=== PATIENT | male | born 1960 | race Caucasian/White ===

== ENCOUNTER 2019-12-25 09:22 | Outpatient (REF) | payer OTHER, SELFPAY ==
[2019-12-25 10:14] LABS: MANUAL DIFF FLAG NO
[2019-12-25 10:16] LABS: Basophils Percent Auto 0.4 % (0-2); Eosinophils Absolute Auto 0.1 X10*3/uL (0.0-0.4); Eosinophils Percent Auto 1.8 % (0-4); Hematocrit 44.7 % (42-52); Hemoglobin 14.8 g/dl (14.0-18.0); Imm Gran Abs Auto 0.06 X10*3/uL (0.00-0.03); Imm Gran Pct Auto 0.8 % (0.0-0.4); Lymphocytes Percent Auto 13.2 % (20-40); Mean Corpuscular HGB Conc 33.1 g/dl (31.0-36.0); Mean Corpuscular Hemoglobin 28.6 pg (27.0-33.0); Mean Corpuscular Volume 86.3 fL (80-98); Mean Platelet Volume 10.4 fL (9.4-12.4); Monocytes Absolute Auto 0.7 X10*3/uL (0.1-1.2); Monocytes Percent Auto 9.5 % (2-11); Neutrophils Absolute Auto 5.8 X10*3/uL (2.0-8.3); Neutrophils Percent Auto 74.3 % (45-73); Platelet Count 245 X10*3/uL (160-400); Red Blood Count 5.18 X10*6/uL (4.60-5.80); Red Cell Distribution Width 12.1 % (11.0-16.0); White Blood Count 7.8 X10*3/uL (4.8-10.8)
[2019-12-25 10:37] LABS: Glucose Urine UA NEG (NEG); Leukocyte Esterase Urine NEG (NEG); Nitrite Urine NEG (NEG); Specific Gravity - Urine 1.025 (1.005-1.025); Urine Blood NEG (NEG); Urine Ketones 5 MG/DL (NEG); Urine Protein NEG (NEG-TRACE)
[2019-12-25 10:44] LABS: Appearance Urine CLEAR; Color Urine DARK YELLOW
[2019-12-25 10:48] LABS: Alanine Aminotransferase 48 U/L (0-40); Albumin Level 4.7 g/dL (3.5-5.0); Alkaline Phosphatase 76 U/L (39-117); Anion Gap 13 (12-20); Aspartate Amino Transferase 23 U/L (5-37); Bilirubin Total 0.5 mg/dL (0.0-1.0); Blood Urea Nitrogen 21 mg/dL (9-16); Calcium 9.3 mg/dL (8.4-10.2); Carbon Dioxide 27 mmol/L (22-29); Chloride 103 mmol/L (96-108); Cholesterol 237 mg/dL; Estimated Glomerular Filt Rate > 60; Glucose Random 102 mg/dL (60-115); HDL Cholesterol 44 mg/dL; LDL Cholesterol Calculated 154 mg/dl; Potassium 4.5 mmol/l (3.3-5.1); Sodium 138 mmol/L (135-145); Total Protein 7.3 g/dL (6.5-8.0); Triglycerides 197 mg/dL
[2019-12-25 10:58] LABS: Reflex LDLD? No
[2019-12-25 11:12] LABS: Prostate Specific Antigen 0.27 ng/mL (<0.05-4.0)
== END 2019-12-25 09:23 | disposition home or self-care (01) ==
LOC: HO.LAB 09:22
PROVIDERS: PCP Internal Medicine; Visit Provider Internal Medicine
DX: Z00.00 Encounter for general adult medical examination without abnormal findings (principal); E78.00 Pure hypercholesterolemia, unspecified; R80.9 Proteinuria, unspecified; N52.9 Male erectile dysfunction, unspecified; I10 Essential (primary) hypertension; K58.2 Mixed irritable bowel syndrome; Z12.5 Encounter for screening for malignant neoplasm of prostate
CPT/HCPCS: 36415; 80053; 80061; 81003; 84153; 85025

== ENCOUNTER 2021-01-06 10:36 | Outpatient (REF) | payer OTHER, SELFPAY ==
[2021-01-06 10:39] LABS: MANUAL DIFF FLAG NO
[2021-01-06 11:09] LABS: Basophils Percent Auto 0.6 % (0-2); Eosinophils Absolute Auto 0.3 X10*3/uL (0.0-0.4); Eosinophils Percent Auto 3.7 % (0-4); Hematocrit 42.8 % (42-52); Hemoglobin 13.9 g/dl (14.0-18.0); Imm Gran Abs Auto 0.07 X10*3/uL (0.00-0.03); Lymphocytes Absolute Auto 1.3 X10*3/uL (1.2-4.9); Lymphocytes Percent Auto 19.6 % (20-40); Mean Corpuscular HGB Conc 32.5 g/dl (31.0-36.0); Mean Corpuscular Hemoglobin 28.5 pg (27.0-33.0); Mean Corpuscular Volume 87.7 fL (80-98); Monocytes Absolute Auto 0.9 X10*3/uL (0.1-1.2); Neutrophils Absolute Auto 4.1 X10*3/uL (2.0-8.3); Neutrophils Percent Auto 62.1 % (45-73); Platelet Count 245 X10*3/uL (160-400); Red Blood Count 4.88 X10*6/uL (4.60-5.80); Red Cell Distribution Width 12.4 % (11.0-16.0); White Blood Count 6.7 X10*3/uL (4.8-10.8)
[2021-01-06 11:27] LABS: Appearance Urine CLEAR; Color Urine YELLOW; Glucose Urine UA NEG (NEG); Leukocyte Esterase Urine NEG (NEG); Nitrite Urine NEG (NEG); Specific Gravity - Urine 1.025 (1.005-1.025); Urine Blood NEG (NEG); Urine Ketones NEG (NEG); Urine Protein NEG (NEG-TRACE)
[2021-01-06 11:41] LABS: Alanine Aminotransferase 28 U/L (0-40); Albumin Level 4.3 g/dL (3.5-5.0); Alkaline Phosphatase 74 U/L (39-117); Anion Gap 13 (12-20); Aspartate Amino Transferase 20 U/L (5-37); Bilirubin Total 0.4 mg/dL (0.0-1.0); Blood Urea Nitrogen 15 mg/dL (9-16); Calcium 8.9 mg/dL (8.4-10.2); Carbon Dioxide 27 mmol/L (22-29); Chloride 103 mmol/L (96-108); Cholesterol 231 mg/dL; Estimated Glomerular Filt Rate > 60; Glucose Fasting 107 mg/dL (60-99); HDL Cholesterol 36 mg/dL; LDL Cholesterol Calculated 164 mg/dl; Sodium 139 mmol/L (135-145); Total Protein 6.9 g/dL (6.5-8.0); Triglycerides 158 mg/dL
[2021-01-06 11:44] LABS: PSA,Total (Free>4and<10) 0.22 ng/mL (0.00-4.00)
[2021-01-06 12:32] LABS: Reflex LDLD? No
== END 2021-01-06 10:37 | disposition home or self-care (01) ==
LOC: HO.LNP 10:36
PROVIDERS: Visit Provider Internal Medicine
DX: Z00.00 Encounter for general adult medical examination without abnormal findings (principal); R79.9 Abnormal finding of blood chemistry, unspecified; E78.00 Pure hypercholesterolemia, unspecified; I10 Essential (primary) hypertension
CPT/HCPCS: 80053; 80061; 81003; 84153; 85025

== ENCOUNTER 2021-07-08 10:21 | Outpatient (REF) | payer OTHER, SELFPAY ==
[2021-07-08 11:00] LABS: Alanine Aminotransferase 32 U/L (0-40); Albumin Level 4.3 g/dL (3.5-5.0); Alkaline Phosphatase 77 U/L (39-117); Aspartate Amino Transferase 20 U/L (5-37); Bilirubin Direct 0.2 mg/dL (0.0-0.5); Bilirubin Total 0.8 mg/dL (0.0-1.0); Cholesterol 245 mg/dL; HDL Cholesterol 38 mg/dL; LDL Cholesterol Calculated 176 mg/dl; Total Protein 7.1 g/dL (6.5-8.0); Triglycerides 157 mg/dL
[2021-07-08 12:32] LABS: Reflex LDLD? No
== END 2021-07-08 10:22 | disposition home or self-care (01) ==
LOC: HO.LNP 10:21
PROVIDERS: PCP Internal Medicine; Visit Provider Internal Medicine
DX: E78.00 Pure hypercholesterolemia, unspecified (principal)
CPT/HCPCS: 80061; 80076

== ENCOUNTER 2021-09-23 07:33 | Outpatient (REF) | payer OTHER, SELFPAY ==
--- NOTE | ~2021-09-23 | XR_ITS ---
EXAMINATION: KNEE X-RAY CLINICAL INFORMATION: Pain COMPARISON: None TECHNIQUE: AP standing view of both knees and lateral and sunrise view of the right knee FINDINGS: Right: Bone alignment is normal. No fracture or dislocation is seen. There is mild joint space narrowing at the medial femoral tibial joint. Joint spaces are otherwise. There is no joint effusion. AP view of the left knee is unremarkable. XR/XR knee standing BI IMPRESSION: Mild joint space narrowing at the right medial femoral tibial joint.
--- NOTE | ~2021-09-23 | XR_ITS ---
EXAMINATION: KNEE X-RAY CLINICAL INFORMATION: Pain COMPARISON: None TECHNIQUE: AP standing view of both knees and lateral and sunrise view of the right knee FINDINGS: Right: Bone alignment is normal. No fracture or dislocation is seen. There is mild joint space narrowing at the medial femoral tibial joint. Joint spaces are otherwise. There is no joint effusion. AP view of the left knee is unremarkable. XR/XR knee RT 2V IMPRESSION: Mild joint space narrowing at the right medial femoral tibial joint.
== END 2021-09-23 07:34 | disposition home or self-care (01) ==
LOC: HO.HOSX 07:33
PROVIDERS: Visit Provider Physician Assistant
DX: M17.11 Unilateral primary osteoarthritis, right knee (principal); M25.562 Pain in left knee
CPT/HCPCS: 20610; 73560; 73565; J1040

== ENCOUNTER 2022-01-08 10:54 | Outpatient (REF) | payer OTHER, SELFPAY ==
[2022-01-08 10:58] LABS: MANUAL DIFF FLAG NO
[2022-01-08 11:54] LABS: Basophils Percent Auto 0.5 % (0-2); Eosinophils Absolute Auto 0.2 X10*3/uL (0.0-0.4); Eosinophils Percent Auto 2.5 % (0-4); Hematocrit 43.8 % (42.0-52.0); Hemoglobin 14.4 g/dl (14.0-18.0); Imm Gran Abs Auto 0.06 X10*3/uL (0.00-0.03); Imm Gran Pct Auto 0.8 % (0.0-0.4); Lymphocytes Absolute Auto 1.4 X10*3/uL (1.2-4.9); Lymphocytes Percent Auto 19.3 % (20-40); Mean Corpuscular HGB Conc 32.9 g/dl (31.0-36.0); Mean Corpuscular Hemoglobin 28.5 pg (27.0-33.0); Mean Corpuscular Volume 86.6 fL (80.0-98.0); Mean Platelet Volume 10.2 fL (9.4-12.4); Monocytes Absolute Auto 0.7 X10*3/uL (0.1-1.2); Monocytes Percent Auto 9.7 % (2-11); Neutrophils Percent Auto 67.2 % (45-73); Platelet Count 242 X10*3/uL (160-400); Red Blood Count 5.06 X10*6/uL (4.60-5.80); White Blood Count 7.5 X10*3/uL (4.8-10.8)
[2022-01-08 12:04] LABS: Alanine Aminotransferase 33 U/L (0-40); Albumin Level 4.5 g/dL (3.5-5.0); Alkaline Phosphatase 73 U/L (39-117); Anion Gap 15 (12-20); Aspartate Amino Transferase 19 U/L (5-37); Bilirubin Total 0.6 mg/dL (0.0-1.0); Blood Urea Nitrogen 19 mg/dL (9-16); Calcium 9.2 mg/dL (8.4-10.2); Carbon Dioxide 26 mmol/L (22-29); Chloride 102 mmol/L (96-108); Cholesterol 263 mg/dL; Estimated Glomerular Filt Rate > 60; Glucose Fasting 100 mg/dL (60-99); HDL Cholesterol 37 mg/dL; LDL Cholesterol Calculated 188 mg/dl; Potassium 3.9 mmol/L (3.3-5.1); Sodium 139 mmol/L (135-145); Total Protein 7.2 g/dL (6.5-8.0); Triglycerides 191 mg/dL
[2022-01-08 12:26] LABS: PSA,Total (Free>4and<10) 0.17 ng/mL (0.00-4.00)
[2022-01-08 13:27] LABS: Appearance Urine Clear; Color Urine Dark Yellow; Glucose Urine UA Negative (Negative); Leukocyte Esterase Urine Negative (Negative); Nitrite Urine Negative (Negative); PH 5.5 (5.0-9.0); Urine Blood Negative (Negative); Urine Ketones Trace mg/dL (Negative); Urine Protein Trace mg/dL (Neg-Trace)
[2022-01-08 13:42] LABS: Bacteria Urine None Seen (None Seen); RBC Urine 0-2 /HPF (0-2); WBC Urine 0-5 /HPF (0-5)
== END 2022-01-08 10:55 | disposition home or self-care (01) ==
LOC: HO.LNP 10:54
PROVIDERS: Visit Provider Internal Medicine
DX: Z00.00 Encounter for general adult medical examination without abnormal findings (principal); R80.9 Proteinuria, unspecified; E78.00 Pure hypercholesterolemia, unspecified; I10 Essential (primary) hypertension; Z12.5 Encounter for screening for malignant neoplasm of prostate
CPT/HCPCS: 80053; 80061; 81001; 84153; 85025

== ENCOUNTER 2022-04-14 10:38 | Outpatient (REF) | payer OTHER, SELFPAY ==
[2022-04-14 12:49] LABS: Alanine Aminotransferase 25 U/L (0-40); Albumin Level 4.3 g/dL (3.5-5.0); Alkaline Phosphatase 83 U/L (39-117); Aspartate Amino Transferase 18 U/L (5-37); Bilirubin Total 0.5 mg/dL (0.0-1.0); Cholesterol 241 mg/dL; HDL Cholesterol 39 mg/dL; LDL Cholesterol Calculated 174 mg/dl; Total Protein 6.7 g/dL (6.5-8.0); Triglycerides 140 mg/dL
[2022-04-14 13:14] LABS: Bilirubin Direct 0.2 mg/dL (0.0-0.5)
== END 2022-04-14 10:39 | disposition home or self-care (01) ==
LOC: HO.LNP 10:38
PROVIDERS: Visit Provider Internal Medicine
DX: E78.00 Pure hypercholesterolemia, unspecified (principal)
CPT/HCPCS: 80061; 80076

== ENCOUNTER 2022-07-07 12:07 | Outpatient (REF) | payer OTHER, SELFPAY ==
[2022-07-07 13:30] LABS: Alanine Aminotransferase 33 U/L (0-40); Albumin Level 4.2 g/dL (3.5-5.0); Alkaline Phosphatase 84 U/L (39-117); Aspartate Amino Transferase 18 U/L (5-37); Bilirubin Direct 0.2 mg/dL (0.0-0.5); Bilirubin Total 0.5 mg/dL (0.0-1.0); Cholesterol 137 mg/dL; HDL Cholesterol 36 mg/dL; LDL Cholesterol Calculated 83 mg/dl; Total Protein 6.4 g/dL (6.5-8.0); Triglycerides 90 mg/dL
== END 2022-07-07 12:08 | disposition home or self-care (01) ==
LOC: HO.LNP 12:07
PROVIDERS: Visit Provider Internal Medicine
DX: Z13.89 Encounter for screening for other disorder (principal)
CPT/HCPCS: 80061; 80076

== ENCOUNTER → 2022-08-11 13:47 | Outpatient (BNVA) | payer OTHER, SELFPAY | PROVIDERS: PCP Internal Medicine; Referring Provider Internal Medicine; Visit Provider Surgery ==

== ENCOUNTER 2023-01-07 11:19 | Outpatient (REF) | payer OTHER, SELFPAY ==
[2023-01-07 11:23] LABS: MANUAL DIFF FLAG NO
[2023-01-07 12:16] LABS: Basophils Percent Auto 0.6 % (0-2); Eosinophils Absolute Auto 0.1 X10*3/uL (0.0-0.4); Hematocrit 43.9 % (42.0-52.0); Hemoglobin 14.5 g/dl (14.0-18.0); Imm Gran Abs Auto 0.06 X10*3/uL (0.00-0.03); Imm Gran Pct Auto 0.9 % (0.0-0.4); Lymphocytes Absolute Auto 1.1 X10*3/uL (1.2-4.9); Lymphocytes Percent Auto 16.9 % (20-40); Mean Corpuscular Hemoglobin 29.8 pg (27.0-33.0); Mean Corpuscular Volume 90.3 fL (80.0-98.0); Mean Platelet Volume 10.7 fL (9.4-12.4); Monocytes Absolute Auto 0.7 X10*3/uL (0.1-1.2); Monocytes Percent Auto 10.7 % (2-11); Neutrophils Absolute Auto 4.5 x10*3/uL (2.0-8.3); Neutrophils Percent Auto 68.9 % (45-73); Platelet Count 222 X10*3/uL (160-400); Red Blood Count 4.86 X10*6/uL (4.60-5.80); Red Cell Distribution Width 12.4 % (11.0-16.0); White Blood Count 6.6 X10*3/uL (4.8-10.8)
[2023-01-07 12:27] LABS: Appearance Urine Clear; Color Urine Yellow; Glucose Urine UA Negative (Negative); Leukocyte Esterase Urine Negative (Negative); Nitrite Urine Negative (Negative); Urine Blood Negative (Negative); Urine Ketones Negative (Negative); Urine Protein Negative (Neg-Trace)
[2023-01-07 12:30] LABS: Bacteria Urine None Seen (None Seen); Hyaline Casts Urine 0-2 /LPF (0-2); RBC Urine 0-2 /HPF (0-2); Squamous Epithelial Cell Urine 0-2 /HPF (0-2); WBC Urine 0-5 /HPF (0-5)
[2023-01-07 13:22] LABS: PSA,Total (Free>4and<10) 0.15 ng/mL (0.00-4.00)
[2023-01-07 13:45] LABS: Alanine Aminotransferase 44 U/L (0-40); Albumin Level 4.4 g/dL (3.5-5.0); Alkaline Phosphatase 86 U/L (39-117); Anion Gap 14 (12-20); Aspartate Amino Transferase 25 U/L (5-37); Bilirubin Total 0.4 mg/dL (0.0-1.0); Blood Urea Nitrogen 18 mg/dL (9-16); Calcium 9.4 mg/dL (8.4-10.2); Carbon Dioxide 27 mmol/L (22-29); Chloride 102 mmol/L (96-108); Cholesterol 139 mg/dL (<200); Estimated Glomerular Filt Rate > 60; Glucose Fasting 111 mg/dL (60-99); HDL Cholesterol 41 mg/dL (>40); LDL Cholesterol Calculated 77 mg/dL (<100); Potassium 3.9 mmol/L (3.3-5.1); Sodium 139 mmol/L (135-145); Total Protein 7.5 g/dL (6.5-8.0); Triglycerides 106 mg/dL (<150)
== END 2023-01-07 11:20 | disposition home or self-care (01) ==
LOC: HO.LNP 11:19
PROVIDERS: Visit Provider Internal Medicine
DX: Z00.00 Encounter for general adult medical examination without abnormal findings (principal); Z12.5 Encounter for screening for malignant neoplasm of prostate; E78.00 Pure hypercholesterolemia, unspecified; I10 Essential (primary) hypertension
CPT/HCPCS: 80053; 80061; 81001; 84153; 85025

== ENCOUNTER 2023-07-12 11:21 | Outpatient (REF) | payer MEDICARE, SELFPAY ==
[2023-07-12 11:42] LABS: Alanine Aminotransferase 36 U/L (0-40); Albumin Level 4.4 g/dL (3.5-5.0); Alkaline Phosphatase 83 U/L (39-117); Aspartate Amino Transferase 21 U/L (5-37); Bilirubin Direct 0.2 mg/dL (0.0-0.5); Bilirubin Total 0.5 mg/dL (0.0-1.0); Cholesterol 146 mg/dL (<200); HDL Cholesterol 41 mg/dL (>40); LDL Cholesterol Calculated 75 mg/dL (<100); Total Protein 7.2 g/dL (6.5-8.0); Triglycerides 151 mg/dL (<150)
[2023-07-12 11:51] LABS: Reflex LDLD? No
== END 2023-07-12 11:22 | disposition home or self-care (01) ==
LOC: HO.LNP 11:21
PROVIDERS: Visit Provider Internal Medicine
DX: E78.00 Pure hypercholesterolemia, unspecified (principal)
CPT/HCPCS: 80061; 80076

== ENCOUNTER 2024-01-13 11:52 | Outpatient (REF) | payer MEDICARE, SELFPAY ==
[2024-01-13 11:56] LABS: MANUAL DIFF FLAG NO
[2024-01-13 12:02] LABS: Appearance Urine Clear; Color Urine Yellow; Glucose Urine UA Negative (Negative); Leukocyte Esterase Urine Negative (Negative); Nitrite Urine Negative (Negative); Specific Gravity - Urine 1.025 (1.005-1.025); Urine Blood Negative (Negative); Urine Ketones Trace mg/dL (Negative); Urine Protein Trace mg/dL (Neg-Trace)
[2024-01-13 12:04] LABS: Basophils Percent Auto 0.6 % (0-2); Eosinophils Absolute Auto 0.2 X10*3/uL (0.0-0.4); Hematocrit 40.2 % (42.0-52.0); Hemoglobin 13.2 g/dl (14.0-18.0); Imm Gran Abs Auto 0.06 X10*3/uL (0.00-0.03); Imm Gran Pct Auto 0.9 % (0.0-0.4); Lymphocytes Absolute Auto 1.2 X10*3/uL (1.2-4.9); Lymphocytes Percent Auto 18.6 % (20-40); Mean Corpuscular HGB Conc 32.8 g/dl (31.0-36.0); Mean Corpuscular Hemoglobin 28.9 pg (27.0-33.0); Mean Platelet Volume 10.6 fL (9.4-12.4); Monocytes Absolute Auto 0.6 X10*3/uL (0.1-1.2); Monocytes Percent Auto 9.6 % (2-11); Neutrophils Absolute Auto 4.3 x10*3/uL (2.0-8.3); Neutrophils Percent Auto 67.3 % (45-73); Platelet Count 217 X10*3/uL (160-400); Red Blood Count 4.57 X10*6/uL (4.60-5.80); Red Cell Distribution Width 12.5 % (11.0-16.0); White Blood Count 6.4 X10*3/uL (4.8-10.8)
[2024-01-13 12:06] LABS: Bacteria Urine None Seen (None Seen); Hyaline Casts Urine 0-2 /LPF (0-2); RBC Urine 0-2 /HPF (0-2); Squamous Epithelial Cell Urine 0-2 /HPF (0-2); WBC Urine 0-5 /HPF (0-5)
[2024-01-13 12:14] LABS: Alanine Aminotransferase 46 U/L (0-40); Albumin Level 4.2 g/dL (3.5-5.0); Alkaline Phosphatase 80 U/L (39-117); Anion Gap 11 (12-20); Aspartate Amino Transferase 31 U/L (5-37); Bilirubin Total 0.4 mg/dL (0.0-1.0); Blood Urea Nitrogen 20 mg/dL (9-16); Calcium 8.9 mg/dL (8.4-10.2); Carbon Dioxide 29 mmol/L (22-29); Chloride 104 mmol/L (96-108); Cholesterol 146 mg/dL (<200); Estimated Glomerular Filt Rate > 60; Glucose Fasting 102 mg/dL (60-99); HDL Cholesterol 44 mg/dL (>40); LDL Cholesterol Calculated 76 mg/dL (<100); Potassium 3.8 mmol/L (3.3-5.1); Sodium 140 mmol/L (135-145); Total Protein 6.8 g/dL (6.5-8.0); Triglycerides 133 mg/dL (<150)
[2024-01-13 12:34] LABS: PSA,Total (Free>4and<10) 0.38 ng/mL (0.00-4.00)
== END 2024-01-13 11:53 | disposition home or self-care (01) ==
LOC: HO.LNP 11:52
PROVIDERS: Visit Provider Internal Medicine
DX: Z00.00 Encounter for general adult medical examination without abnormal findings (principal); E78.00 Pure hypercholesterolemia, unspecified; I10 Essential (primary) hypertension; Z12.5 Encounter for screening for malignant neoplasm of prostate
CPT/HCPCS: 80053; 80061; 81001; 84153; 85025

== ENCOUNTER 2024-07-11 10:52 | Outpatient (REF) | payer MEDICARE, SELFPAY ==
[2024-07-11 11:45] LABS: Alanine Aminotransferase 49 U/L (0-40); Albumin Level 4.4 g/dL (3.5-5.0); Alkaline Phosphatase 79 U/L (39-117); Aspartate Amino Transferase 33 U/L (5-37); Bilirubin Direct 0.2 mg/dL (0.0-0.5); Bilirubin Total 0.4 mg/dL (0.0-1.0); Cholesterol 136 mg/dL (<200); HDL Cholesterol 40 mg/dL (>40); LDL Cholesterol Calculated 73 mg/dL (<100); Triglycerides 116 mg/dL (<150)
--- OUTSIDE RECORDS SUMMARY | 2024-07-11 12:55 | XMS_ITS ---
Author Organization Abner Mcgovern MD Address [address] [place], [place] [id number] Care Team Providers Care Supervisor [employer] Name Role Phone Shaniqua Abner Primary Care Provider Results Component Value Reference Range Notes Liver Panel (Not yet reviewe d by provider) Interpretation: Performing Lab:[facility], [address] [place] [phone] Notes/Report: Bilirubin Total 0.4 0.0-1.0 mg/dL Bilirubin Direct 0.2 0.0-0.5 mg/dL Aspartate Amino Transferase 33 5-37 U/L Alanine Aminotransferase 49 0-40 U/L Total Protein 7.0 6.5-8.0 g/dL Albumin Level 4.4 3.5-5.0 g/dL Alkaline Phosphatase 79 39-117 U/L Lipid Panel (Not yet reviewe d by provider) Interpretation: Performing Lab:[address] [phone] Notes/Report: Triglycerides 116 <150 mg/dL Desirable Triglyceride: [...] Location Date Provider Diagnosis Abner Mcgovern MD [address] [place] [phone] 07/11/2024 Abner Mcgovern Pure hypercholestero lemia E78.00 and Anxiety F41.9 Assessments Encounter Date Diagnosis (ICD Code) Assessment Notes Treatment Notes Treatment Clinical Notes Section Notes 07/11/2024 Pure hypercholesterolemia (ICD-10 - E78.00) 07/11/2024 Anxiety (ICD-10 - F41.9) Plan Of Treatment Pending Test Test Name Order Date Liver Panel 07/11/2024 Lipid Panel 07/11/2024 Next Appt Details Provider Name:Abner seymour, 07/17/2024 01:30:00 PM, [address] [place] [address], [address], [phone], Provider Name:Abner seymour, 01/16/2025 07:30:00 AM, [address] [place] [address], [address], [phone], Provider Name:Abner seymour, 01/23/2025 01:00:00 PM, [address] [place] [address], [phone], Progress Notes * Gloria PARKS: 8 (64 yo M)Acc No.[id number]:07/11/2024 Progress Note Patient:?Wily PARKS Provider:?Abner Mcgovern MD :1960???Age:64 Y???Sex:Male Mayco e:07/11/2024 Address:[address] [place] [address], Lexi flores [id number] Subjective: * Chief Complaints: * ???1. FASTING LIPIDS. * Medical History:? Objective: * Vitals:? Assessment: * Assessment: 1.?Pure hypercholesterolemia - E78.00 (Primary)???2.?Anxiety - F41.9??? Plan: * Treatment: 2.?Anxiety?LAB: Liver Panel (Collection Date & Time - 07/11/2024 08:00 AM) ?LAB: Lipid Panel (Collection Date & Time - 07/11/2024 08:00 AM) * Procedure Codes:?61953 VENIP UNCT, ROUTINE* * * The named appointment provid er may or may not be the originator of this progress note, and it is not deemed complete until electronically signed by the appointment provider. Sign off status: Pending * Provider:?Abner Mcgovern MD Date:?0 07/11/2024 Generated for Joseph davis/Kaleb/Hubertitting on:?07/11/2024 12:55 PM EDT
--- OUTSIDE RECORDS SUMMARY | 2024-07-11 12:56 | XMS_ITS ---
Author Organization Abner Mcgovern MD Address [address] [place] [phone] Care Team Providers Care Marketing Finance Specialist Name Role Phone Abner Mcgovern Primary Care Provider [phone] Allergies No Known Allergies Results Component Value [...] weight is down 4 pounds [facility] 07-19-23 Encounters Encounter Location Date Provider Diagnosis Abner Mcgovern MD [address] [place] [address] Drive [address] [place] [phone] 01/20/2024 Abner Mcgovern Anxiety F41.9 ; Suma [...] screening guaiac negative Depression screening negative screen Pending Test Test Name Order Date Liver Panel 01/20/2024 Lipid Panel 01/20/2024 Next Appt Details Follow Up: 6 Months, Reason: Provider Name:Abner seymour, 07/17/2024 01:30:00 PM, [address] [place] [address], [address], [phone], Provider Name:Abner seymour, 01/16/2025 07:30:00 AM, [address] [place] [address], [address], [phone], Provider Name:Abner seymour, 01/23/2025 01:00:00 PM, [address] [place] [address], [address], [phone], Progress Notes * Gloria PARKS: 8 (64 yo M)Acc No.[id number]:01/20/2024 Patient:?Wily Parks Provider:?Abner Mcgovern MD :1960???Age:63 Y???Sex:Male Mayco e:01/20/2024 Address:[address] [place] [address], [place]i flores [id number] Subjective: * Chief Complaints: * ???COMP EXAM * HPI: ???Depression Screening:?PHQ-9?Little interest or pleasure in doing things?Not at all,?Feeling down, depressed, or hopeless?Not at all,?Trouble falling or staying asleep, or sleeping too much?Not at all,?Feeling tired or having little energy?Not at all,?Poor appetite or overeating?Not at all,?Feeling bad about yourself or that you are a failure, or have let yourself or your family down?Not at all,?Trouble concentrating on things, such as reading the newspaper or watching television?Not at all,?Moving or speaking so slowly that other people could have noticed; or the opposite, being so fidgety or restless that you have been moving around a lot more than usual?Not at all,?Thoughts that you would be better off or of hurting yourself in some way?Not at all,?Total Score?0.?Interpretation and Intervention?Depression Screening Findings?Negative,?Follow-Up for Depression?: review of PHQ-9 found negative result, no follow-up needed.?Communication Needs:?Communication Needs?Does the patient have a hearing impairment?No,?Does the patient have a vision impairment??Yes,?If yes, what is the vision impairment??Contact Lenses,?Does the patient have a cognition impairment??No.?Fall Risk:?History?Have you had any falls with injury in the past year??No,?Have you had two or more falls in the past year??No.?SDOH Questions:?SDOH Questions?In the past year have you been worried about losing housing??No,?In the past year have you or any family members you live with been unable to get any of the following when it was really needed? Check all that apply:?None.?Symptom(s):? patient is a 63 yo male here for annual visit with review of recent labs and follow up of chronic issues,. * ROS:?General/Constitutional:?Patient denies?fatigue , headache.?Change in appetite?denies.?Chills?denies.?Fever?denies.?Ophthalmologic:?Blurred vision?denies.?Discharge?denies.?Pain?denies.?ENT:?Patient denies?decreased sense of smell , any loss of taste , sore throat.?Decreased hearing?denies.?Sore throat?denies.?Swollen glands?denies.?Endocrine:?Cold intolerance?denies.?Excessive thirst?denies.?Heat intolerance?denies.?Weight loss?denies.?Respiratory:?Cough?denies.?Shortness of breath at rest?denies.?Shortness of breath with exertion?denies.?Wheezing?denies.?Cardiovascular:?Chest pain at rest?denies.?Chest pain with exertion?denies.?Irregular heartbeat?denies.?Shortness of breath?denies.?Gastrointestinal:?Abdominal pain?denies.?Change in bowel habits?denies.?Diarrhea?denies.?Nausea?denies.?Rectal bleeding?denies.?Vomiting?denies .?Genitourinary:?Blood in urine?denies.?Difficulty urinating?denies.?Frequent urination?denies.?Musculoskeletal:?Patient denies?muscle aches.?Painful joints?denies.?Weakness?denies.?Peripheral Vascular:?Patient denies?red and blue toes.?Skin:?Dry skin?denies.?Itching?denies.?Denies?Mole(s),? changes in moles, new moles or any lesions of concern.?Denies?Photosensitivity.?Rash?denies.?Neurologic:?Dizziness?denies.?Fainting?denies.?Headache?denies.? * Medical History:? * Surgical History:? * Hospitalization/Major Diagno stic Procedure:? * Family History:?Father: dece ased 58 yrs, colon cancer, pancreatic cancer, diagnosed with Cancer.?Mother: 85 yrs, Old age., family history unknown .?1 brother(s) , 2 sister(s) - healthy. 1 son(s) - healthy. .? father, colon & pancreatic CA, No pertinent family medical history, Denies mental health/substance abuse family history, Denies mental health/substance abuse family history, Denies mental health/substance abuse family history, No pertinent family medical history. * Social History:?Tobacco Use:?Tobacco Use/Smoking?Patient is a?nonsmoker,?Additional Findings: Tobacco Non-User?Current non-smoker, currently using no form of tobacco.?Drugs/Alcohol:?Alcohol Screen?Did you have a drink containing alcohol in the past year??Yes,?How often did you have a drink containing alcohol in the past year??2 to 4 times a month (2 points),?How many drinks did you have on a typical day when you were drinking in the past year??1 or 2 drinks (0 point),?Points?2,?Interpretation?Negative.?Miscellaneous:?Caffeine: yes, frequency:, 1-2 cups per day. Children: yes. no Community involvements. Exercise: yes, weights rowing machine and tennis in the summer pickle ball. Home smoke detector use: yes. Housing: owning. Living with: family. Marital status: . Occupation: works full-time. Pets: cats: dogs:1 cat. no Travel outside of the [place]. * Medications:?TakingclonazePA M 0.5 MG Tablet 1 tablet at bedtime [...] reviewed and reconciled with the patient * Allergies:?N.K.D.A.yes[Aller gies Verified] Objective: * Vitals:?Ht: 68, Wt:169, BMI: 25.69, BP:122/70 weight is down 4 pounds since 07-19-23. * ???Past Orders: ???Lab:Lipid Panel (Order Da te - 01/13/2024) (Collection Date - 01/13/2024) ? Value Reference Range ?Triglycerides 133 <150 - mg/dL ?Cholesterol 146 <200 - m g/dL ?LDL Cholesterol Calculated 76 <100 - mg/dL ?HDL Cholesterol 44 >40 - mg/dL ???Lab:PSA,Total (Free>4and< 10) (Order Date - 01/13/2024) (Collection Date - 01/13/2024) ? Value Reference Range ?PSA,Total (Free>4and<10) 0.38 0.00-4.00 - ng/mL ???Lab:UA ClnCatch+Micro w/r flx Cult (Order Date - 01/13/2024) (Collection Date - 01/13/2024) ? Value Reference Range ?Color Urine Yellow - ?Appearance Urine Clear - ?PH 7.0 5.0-9.0 - ?Glucose Urine UA Negative Neg ative - mg/dL ?Urine Blood Negative Negative - ?Specific [place] - Urine 1.025 1.005-1.025 - ?Urine Protein Trace Neg-Tr preethi - mg/dL ?Urine Ketones Trace Negati ve - mg/dL ?Nitrite Urine Negative Negati ve - ?Leukocyte Esterase Urine Negative Negative - ?RBC Urine 0-2 0-2 - /HPF ?WBC Urine 0-5 0-5 - /HPF ?Squamous Epithelial Cell Urine 0-2 0-2 - /HPF ?Bacteria Urine None Seen None Seen - ?Hyaline Casts Urine 0-2 0-2 - /LPF ???Lab:Complete Blood Count Auto Diff (Order Date - 01/13/2024) (Collection Date - 01/13/2024) ? Value Reference Range ?White Blood Count 6.4 4. 8-10.8 - X10*3/uL ?Red Blood Count 4.57 L 4.60 -5.80 - X10*6/uL ?Hemoglobin 13.2 L 14.0-18.0 - g/dl ?Hematocrit 40.2 L 42.0-52.0 - % ?Mean Corpuscular Volume 88.0 80.0-98.0 - fL ?Mean Corpuscular Hemoglobin 28.9 27.0-33.0 - pg ?Mean Corpuscular HGB Conc 32.8 31.0-36.0 - g/dl ?Red Cell Distribution Width 12.5 11.0-16.0 - % ?Platelet Count 217 160-4 00 - X10*3/uL ?Mean Platelet Volume 10.6 9.4-12.4 - fL ?Neutrophils Percent Auto 67.3 45-73 - % ?Imm Gran Pct Auto 0.9 H 0. 0-0.4 - % ?Lymphocytes Percent Auto 18.6 L 20-40 - % ?Monocytes Percent Auto 9.6 2-11 - % ?Eosinophils Percent Auto 3.0 0-4 - % ?Basophils Percent Auto 0.6 0-2 - % ?NRBC Pct Auto 0.0 0.0-0. 2 - /100WBC ?Neutrophils Absolute Auto 4.3 2.0-8.3 - x10*3/uL ?Imm Gran Abs Auto 0.06 H 0. 00-0.03 - X10*3/uL ?Lymphocytes Absolute Auto 1.2 1.2-4.9 - X10*3/uL ?Monocytes Absolute Auto 0.6 0.1-1.2 - X10*3/uL ?Eosinophils Absolute Auto 0.2 0.0-0.4 - X10*3/uL ?Basophils Absolute Auto 0.0 0.0-0.2 - X10*3/uL ?NRBC Abs Auto 0.000 0.0-0. 012 - X10*3/uL ???Lab:Comprehensive [place]. P sindhu Fast (Order Date - 01/13/2024) (Collection Date - 01/13/2024) ? Value Reference Range ?Sodium 140 135-145 - mmo l/L ?Bilirubin Total 0.4 0.0- 1.0 - mg/dL ?Aspartate Amino Transferase 31 5-37 - U/L ?Alanine Aminotransferase 46 H 0-40 - U/L ?Total Protein 6.8 6.5-8. 0 - g/dL ?Albumin Level 4.2 3.5-5. 0 - g/dL ?Alkaline Phosphatase 80 39-117 - U/L ?Potassium 3.8 3.3-5.1 - mmol/L ?Chloride 104 96-108 - mm ol/L ?Carbon Dioxide 29 22-29 - mmol/L ?Anion Gap 11 L 12-20 - ?Blood Urea Nitrogen 20 H 9-16 - mg/dL ?Creatinine 0.97 0.5-1.4 - mg/dL ?Estimated Glomerular Filt Rate > 60 - ?Glucose Fasting 102 H 60-9 9 - mg/dL ?Calcium 8.9 8.4-10.2 - m g/dL * Examination: ???General Examination: ?GENERAL APPEARANCE:?well developed, well nourished, in no acute distress.?HEAD:?normocephalic, atraumatic.?EYES:?pupils equal, round, reactive to light and accommodation, sclera non-icteric.?EARS:?normal.?ORAL CAVITY:?mucosa moist.?THROAT:?clear.?NECK/THYROID:?neck supple, full range of motion, no cervical lymphadenopathy, no bruits.?SKIN:?warm and dry, no suspicious lesions.?HEART:?regular rate and rhythm, S1, S2 normal, no murmurs.?LUNGS:?clear to auscultation bilaterally.?ABDOMEN:?soft, nontender, nondistended, bowel sounds present, normal, no organomegaly , no masses palpable.?RECTAL EXAM:?normal tone, no external hemorrhoids, no masses palpable, prostate normal, stool guaiac negative.?MALE GENITOURINARY:?uncircumcised , no penile lesions or discharge , no testicular mass , prostate normal , testes descended bilaterally.?EXTREMITIES:?no clubbing, cyanosis, or edema.?NEUROLOGIC:?nonfocal, motor strength normal upper and lower extremities, sensory exam intact.? Assessment: * Assessment: 1.?Annual physical exam - Z0 0.00 (Primary)?2.?Anxiety - F41.9?3.?Pure hypercholesterolemia - E78.00?4.?Essential hypertension - I10?5.?Colon cancer screening - Z12.11?6.?Depression screening - Z13.31? Plan: * Treatment: 2.?Anxiety? Refill clonazePAM Tablet, 0.5 MG, 1 tablet at bedtime, Orally, Once a day as needed, 20 days, 20, Refills 1.?LAB: Liver Panel (Ordered for 04/21/2024) ?LAB: Lipid Panel (Ordered for 04/21/2024) Notes: doing well with occasionally need to take clonopin, will continue to monitor?? 3.?Pure hypercholesterolemia ? Continue Atorvastatin Calcium Tablet, 40 MG, 0.5 tablet, Orally, Once a day.?? Notes: doing well on meds.will continue current regiment?? 4.?Essential hypertension? Continue Valsartan-hydroCHLOROthiazide Tablet, 80-12.5 MG, TAKE 1 TABLET BY MOUTH EVERY DAY.?? Notes: stable, at goal, will continue current regiment?? 5.?Colon cancer screening?LAB: Occult Blood, Stool, Guaiac?Negative ? Value Reference Range ?Occult Blood, Stool, Guaiac Neg Notes: guaiac negative??6.?Depression screening? Notes: negative screen?? * Procedure Codes:?87435 TEST FOR BLOOD, FECES * Follow Up:?6 Months * * Sign off status: Completed true * Provider:?Abner Mcgovern MD Date:?1 Generated for Joseph davis/Kaleb/eTransmitting on:?07/11/2024 12:56 PM EDT History and Physical Notes * [...] patient have a vision impairmen t?: Yes ?If yes, what is the vision impairment?: Contact Lenses Does the patient have a cognition impair ment?: No Examination Category Sub-Category Detail Notes Category Not es General Examination GENERAL APPEARANCE: well dev eloped, well nourished, in no acute distress HEAD: normocephalic, atrau matic EYES: pupils equal, round, reactive to light and accommodation, sclera non- icteric EARS: normal THROAT: clear NECK/THYROID: neck supple, [...]
--- OUTSIDE RECORDS SUMMARY | 2024-07-11 12:56 | XMS_ITS ---
Author Organization Abner Mcgovern MD Address [address] [place] [phone] Care Team Providers Care Experimental Mechanic [employer] Name Role Phone Abner Mcgovern Primary Care Provider Results Component Value Reference Range Notes Complete Blood Count Auto Di ff Reviewed date:01/13/2024 12:47:23 PM Interpretation: Performing Lab:[facility], [address] [place] [phone] Notes/Report: White Blood Count 6.4 4.8-10.8 X10*3/uL [...] NRBC Abs Auto 0.000 0.0-0.012 X10*3/uL Comprehensive [place]. Panel Fa st Reviewed date:01/13/2024 12:27:45 PM Interpretation: Performing Lab:[facility], [address] [place] [phone] Notes/Report: Sodium 140 135-145 mmol/L Potassium 3.8 3.3-5.1 mmol/L Chloride 104 96-108 mmol/L Carbon Dioxide 29 22-29 mmol/L Anion Gap 11 12-20 Blood Urea Nitrogen 20 9-16 mg/dL Creatinine 0.97 0.5-1.4 mg/dL Estimated Glomerular Filt Rate > 60 NOTE: For -Greek individuals, multiply the result by 1.210. Chronic [...] Panel Reviewed date:01/13/2024 12:28:52 PM Interpretation: Performing Lab:[facility], [address] [place] [phone] Notes/Report: Triglycerides 133 <150 mg/dL Desirable Triglyceride: [...] (Free>4and<10) Reviewed date:01/13/2024 12:46:23 PM Interpretation: Performing Lab:[facility], [address] [place] [phone] Notes/Report: PSA,Total (Free>4and<10) 0.38 0.00-4.00 ng/mL A [...] t Reviewed date:01/13/2024 05:30:34 PM Interpretation: Performing Lab:[facility], [address] [place] [phone] Notes/Report: [id number] Urine, Clean Catch Color Urine Yellow Appearance Urine Clear PH 7.0 5.0-9.0 Glucose Urine UA Negative Negative mg/dL Urine Blood Negative Negative Specific [place] - Urine 1.025 1.005-1.025 Urine Protein Trace [...] Location Date Provider Diagnosis Abner Mcgovern MD [address] [place] [phone] 01/13/2024 Abner Mcgovern Blood tests for rout [...] Of Treatment Next Appt Details Provider Name:Abner seymour, 07/17/2024 01:30:00 PM, [address] [place] [address], [phone], Provider Name:Abner seymour, 01/16/2025 07:30:00 AM, [address] [place] [address], [address], [phone], Provider Name:Abner seymour, 01/23/2025 01:00:00 PM, [address] [place] [address], [phone], Progress Notes * Gloria PARKS: 8 (63 yo M)Acc No.[id number]:01/13/2024 Progress Note Patient:?Wily Parks Provider:?Abner Mcgovern MD :1960???Age:63 Y???Sex:Male Mayco e:01/13/2024 Address:[address] [place] [address], [place]i flores [id number] Subjective: * Chief Complaints: * ???FASTING LABS * Medical History:? * Surgical History:? * Hospitalization/Major Diagno stic Procedure:? * Medications:? Objective: Assessment: * Assessment: 1.?Blood tests for routine g eneral physical examination - Z00.00 (Primary)?2.?Pure hypercholesterolemia - E78.00?3.?Essential hypertension - I10? Plan: * Treatment: 2.?Pure hypercholesterolemia ?LAB: Complete Blood Count Auto Diff ?LAB: Comprehensive [place]. Panel Fast ?LAB: Lipid Panel ?LAB: PSA,Total (Free>4and<10) ?LAB: UA ClnCatch+Micro w/rflx Cult 3.?Essential hypertension?LAB: Complete Blood Count Auto Diff ?LAB: Comprehensive [place]. Panel Fast ?LAB: Lipid Panel ?LAB: PSA,Total (Free>4and<10) ?LAB: UA ClnCatch+Micro w/rflx Cult * Procedure Codes:?45058 VENIP UNCT, ROUTINE* * * Sign off status: Completed true * Provider:?Abner Mcgovern MD Date:?1 Generated for Printi ng/Faxing/eTransmitting on:?07/11/2024 12:55 PM EDT
--- OUTSIDE RECORDS SUMMARY | 2024-07-11 12:56 | XMS_ITS | Patient Health Record ---
Author Organization Abner Mcgovern MD Address [address] [place], [place] [id number] Care Team Providers Care Rn Disease Management Name Role Phone Abner Mcgovern Primary Care Provider [phone] Allergies No Known Allergies Results Component Value Reference Range Notes Liver Panel Reviewed date:07/12/2023 12:38:11 PM Interpretation: Performing Lab:[facility], [address] [place] [id number] Notes/Report: Bilirubin Total 0.5 0.0-1.0 mg/dL Bilirubin Direct 0.2 0.0-0.5 mg/dL Aspartate Amino Transferase 21 5-37 U/L Alanine Aminotransferase 36 0-40 U/L Total Protein 7.2 6.5-8.0 g/dL Albumin Level 4.4 3.5-5.0 g/dL Alkaline Phosphatase 83 39-117 U/L Lipid Panel with Reflex Reviewed date:07/12/2023 12:48:53 PM Interpretation: Performing Lab:[facility], [address] [place] [phone] Notes/Report: Triglycerides 151 <150 mg/dL Desirable Triglyceride: less than 150 mg/dL Borderline High Triglyceride 150-199 mg/dL High Triglyceride: 200-499 mg/dL Very High Triglyceride: greater than or equal to 5OO mg/dL Cholesterol 146 <200 mg/dL Desirable Cholesterol: less than 200 mg/dL Borderline High Cholesterol: 200-239 mg/dL High Cholesterol: greater than 239 mg/dL LDL Cholesterol Calculated 75 <100 mg/dL Desirable LDL: less than 100 mg/dL Near Optimal/Above Optimal LDL: 110-129 mg/dL Borderline High LDL: 130-159 mg/dL High LDL: 160-189 mg/dL Very High LDL: greater than or equal to 190 mg/dL HDL Cholesterol 41 >40 mg/dL Desirable HDL: greater than 40 mg/dL Note: This HDL assay may give artificially low results in patients with liver disease. Liver Panel (Not yet review ed by provider) Interpretation: Performing Lab:[address] [phone] Notes/Report: Bilirubin Total 0.4 0.0-1.0 mg/dL Bilirubin Direct 0.2 0.0-0.5 mg/dL Aspartate Amino Transferase 33 5-37 U/L Alanine Aminotransferase 49 0-40 U/L Total Protein 7.0 6.5-8.0 g/dL Albumin Level 4.4 3.5-5.0 g/dL Alkaline Phosphatase 79 39-117 U/L Lipid Panel (Not yet reviewe d by provider) Interpretation: Performing Lab:[facility], [address] [place] [phone] Notes/Report: Triglycerides 116 <150 mg/dL Desirable Triglyceride: [...] low results in patients with liver disease. Complete Blood Count Auto Di ff Reviewed date:01/13/2024 12:47:23 PM Interpretation: Performing Lab:[address] [phone] Notes/Report: White Blood Count 6.4 4.8-10.8 X10*3/uL [...] NRBC Abs Auto 0.000 0.0-0.012 X10*3/uL Comprehensive Blanch. Panel Fa st Reviewed date:01/13/2024 12:27:45 PM Interpretation: Performing Lab:[facility], [address] [place] [phone] Notes/Report: Sodium 140 135-145 mmol/L Potassium 3.8 3.3-5.1 mmol/L Chloride 104 96-108 mmol/L Carbon Dioxide 29 22-29 mmol/L Anion Gap 11 12-20 Blood Urea Nitrogen 20 9-16 mg/dL Creatinine 0.97 0.5-1.4 mg/dL Estimated Glomerular Filt Rate > 60 NOTE: For -Mauritian individuals, multiply the result by 1.210. Chronic [...] Panel Reviewed date:01/13/2024 12:28:52 PM Interpretation: Performing Lab:[facility], [address] [place] [phone] Notes/Report: Triglycerides 133 <150 mg/dL Desirable Triglyceride: [...] (Free>4and<10) Reviewed date:01/13/2024 12:46:23 PM Interpretation: Performing Lab:[address] [phone] Notes/Report: PSA,Total (Free>4and<10) 0.38 0.00-4.00 ng/mL A [...] t Reviewed date:01/13/2024 05:30:34 PM Interpretation: Performing Lab:[address] [phone] Notes/Report: [id number] Urine, Clean Catch Color Urine Yellow Appearance Urine Clear PH 7.0 5.0-9.0 Glucose Urine UA Negative Negative mg/dL Urine Blood Negative Negative Specific Hector - Urine 1.025 1.005-1.025 Urine Protein Trace Neg-Trace mg/dL Urine Ketones Trace Negative mg/dL Nitrite Urine Negative Negative Leukocyte Esterase Urine Negative Negative RBC Urine 0-2 0-2 /HPF WBC Urine 0-5 0-5 /HPF Squamous Epithelial Cell Urine 0-2 0-2 /HPF Bacteria Urine None Seen None Seen Hyaline Casts Urine 0-2 0-2 /LPF Occult Blood, Stool, Guaiac Reviewed date:01/20/2024 02:11:40 PM Interpretation:Negative Performing Lab: Notes/Report: Negative Occult Blood, Stool, Guaiac Neg Hold Gold Reviewed date:07/12/2023 12:45:46 PM Interpretation: Performing Lab:[address] [phone] Notes/Report: Hold Gold See Note Specimen held untested for 24 hours; Call to request Chemistry testing. Hold Gold (Not yet reviewed by provider) Interpretation: Performing Lab:[address], [place] [address] Notes/Report: Hold Gold See Note Specimen held untested for 24 hours; Call to request Chemistry testing. Reason For Referral No Information Medications Medication SIG (Take, Route, Frequency, Duration) Notes Start Date End Date Status Hyoscyamine Sulfate ER 0.375 MG 1 tablet Orally once a day for 30 days 11/03/2019 Not-Taking Sildenafil Citrate 100 MG 1/2 tablet as needed Orally Once a day for 30 day(s) 12/29/2018 Not-Taking Clindamycin Phosphate 1 % 1 application to affected area Externally Once a day for 30 days 12/29/2018 Not-Taking Ocuflox 0.3 % 1 drop into affected eye Ophthalmic Four times a day for 10 days 11/17/2018 Not-Taki ng Escitalopram Oxalate 10 MG TAKE 1 TABLET BY MOUTH EVERY DAY for 90 Active Valsartan-hydroCHLOROthia zide 80-12.5 MG TAKE 1 TABLET BY MOUTH EVERY DAY for 90 Active Propecia 1 MG 1 tablet Orally Once a day for 90 days 02/26/2011 Active Avalide 150-12.5 MG 1 tablet Orally Once a day for 30 day(s) 11/05/2017 Not-Taking Cialis 20 MG 1 tablet Orally Once a day for 30 days 03/26/2011 Not-Taking clonazePAM 0.5 MG 1 tablet at bedtime Orally Once a day as needed for 20 days 01/20/2024 Active Atorvastatin Calcium 40 MG TAKE 1/2 TABLET BY MOUTH EVERY DAY FOR 90 DAYS for 90 Active Immunizations Vaccine Route Administration Date Status Comme nts Covid Vaccine Unknown 06/09/2020 Administered Pfizee Covid Vaccine Unknown 06/30/2020 Administered Pfizer SARS-COV-2 Pfizer Unknown 01/15/2021 Administered SARS-COV-2 Pfizer Unknown 10/10/2021 [facility]ered [facility] SARS-COV-2 Pfizer Unknown 01/16/2022 [facility]ered [facility] SARS-COV-2 Pfizer Unknown 12/17/2023 Administered [facility] Fluarix Quadrivalent Unknown 05/18/2016 Refused Fluarix Quadrivalent Unknown 11/26/2016 Refused Fluarix Quadrivalent Unknown 12/01/2016 Refused Fluarix Quadrivalent Unknown 12/26/2018 Refused Fluarix Quadrivalent Unknown 01/05/2020 Refused Fluarix Quadrivalent Unknown 01/06/2021 Refused Fluarix Quadrivalent Unknown 01/07/2023 Refused Social History Tobacco Use: Social History Observation [...] drinks (0 point) Points 2 Interpretation Negative Problems Problem Type SNOMED Code ICD Code Onset Dates Problem Status W/U Status Risk Notes Problem 109163802 Tubular adenoma (D36.9) Active confir med Problem 58966592 Anxiety (F41.9) Active confirmed Problem 336660788 Diverticulitis (K57.92) Active confir med Problem Chronic pharyngitis (650811) Chronic pharyngitis (J31.2) Active confirmed Problem 75377366 Essential hypert ension (I10) Active confirmed Problem Erectile dysfunction (disorder) (879586243) Erectile dysfunction, unspecified erectile dysfunction type (N52.9) Active confirmed Problem 85191412 Proteinuria (R80.9) Active confirmed Problem 907760786 Pure hypercholesterolemia (E78.00) Active confirmed Problem 11482065 Irritable bowel syndrome with both constipation and diarrhea (K58.2) Active confirmed Problem 142253655 Arthritis of kne e (M17.10) Active confirmed Vital Signs Blood pressure diastolic 70 mm Hg 01/20/2024 deepali ght is down 4 pounds since 07-19-23 Height 68 in 01/20/2024 weight is down 4 pounds since 07-19-23 Blood pressure systolic 122 mm Hg 01/20/2024 deepalig ht is down 4 pounds since 07-19-23 Weight 169 lbs 01/20/2024 weight is down 4 pounds since 07-19-23 BMI 25.69 kg/m2 01/20/2024 weight is down 4 pounds since 07-19-23 Encounters Encounter Location Date Provider Diagnosis Abner Mcgovern MD [address] [place] [address] [place] [id number] 07/12/2023 Abner Mcgovern Pure hypercholestero lemia E78.00 Abner Mcgovern MD [address] [place] [id number] 07/11/2024 Abner Mcgovern Pure hypercholestero lemia E78.00 and Anxiety F41.9 Abner Mcgovern MD [address] [place] [id number] 07/19/2023 Abner Mcgovern Pure hypercholestero lemia E78.00 and Essential hypertension I10 Abner Mcgovern MD [address] [place] [id number] 01/13/2024 Abner Mcgovern Blood tests for rout ine general physical examination Z00.00 ; Pure hypercholesterolemia E78.00 and Essential hypertension I10 Abner Mcgovern MD [address] [place] [id number] 01/20/2024 Abner Mcgovern Anxiety F41.9 ; Suma al physical exam Z00.00 ; Pure hypercholesterolemia E78.00 ; Essential hypertension I10 ; Colon cancer screening Z12.11 and Depression screening Z13.31 Abner Mcgovern MD [address] [place] [id number] 10/11/2023 Abner Mcgovern Assessments Encounter Date Diagnosis (ICD Code) Assessment Notes Treatment Notes Treatment Clinical Notes Section Notes 07/12/2023 Pure hypercholesterolemia (ICD-10 - E78.00) 07/11/2024 Pure hypercholesterolemia (ICD-10 - E78.00) 07/19/2023 Pure hypercholesterolemia (ICD-10 - E78.00) doing well, will continue current regiment 07/19/2023 Essential hypertensi on (ICD-10 - I10) well controlled, will continue current regiment 01/13/20[address] tests [address] ine general physical examination (ICD-10 - Z00.00) 01/13/2024 Pure hypercholesterolemia (ICD-10 - E78.00) 01/20/2024 Anxiety (ICD-10 - F41.9) doing well with occasionally need to take clonopin, will continue to monitor 01/20/2024 Annual physical exam (ICD-10 - Z00.00) labs reviewed and discussed with patient 07/11/2024 Anxiety (ICD-10 - F41.9) 01/13/2024 Essential hypertensi on (ICD-10 - I10) 01/20/2024 Pure hypercholesterolemia (ICD-10 - E78.00) doing well on meds.will continue current regiment 01/20/2024 Essential hypertensi on (ICD-10 - I10) stable, at goal, will continue current regiment 01/20/2024 Colon cancer screeni ng (ICD-10 - Z12.11) guaiac negative 01/20/2024 Depression screening (ICD-10 - Z13.31) negative screen Plan Of Treatment Pending Test Test Name Order Date Hold Gold 07/11/2024 Liver Panel 07/11/2024 Lipid Panel 07/11/2024 Next Appt Details Provider Name:Abner Benoit ier, 07/17/2024 01:30:00 PM, [address] [place] [address], [phone], Provider Name:Abner Benoit ier, 01/16/2025 07:30:00 AM, [address] [place] [address], [phone], Provider Name:Abner Benoit ier, 01/23/2025 01:00:00 PM, [address] [place] [address], [phone], Insurance Providers Payer Name Payer Address Payer Phone Subscriber Number Group Number Insured Name Patient Relationship to Insured Coverage Start Date Coverage End Date [facility] [place] [employer] [address] [address] [place] [address] [id number] Wily Plunkett Self - patient is the insured MEDICARE NHIC [address] [place] [address] [id number] Wily Plunkett Self - patient is the insured Medical (General) History Medical History History ICD Code colonoscopy 2011 due in 5 ye ars due to family; colonoscopy by Dr. Joyner 06/30/16 (repeat 5 years): colonoscopy 10/06/21 repeat 5yrs
== END 2024-07-11 10:53 | disposition home or self-care (01) ==
LOC: HO.LNP 10:52
PROVIDERS: Visit Provider Internal Medicine
DX: E78.00 Pure hypercholesterolemia, unspecified (principal); F41.9 Anxiety disorder, unspecified
CPT/HCPCS: 80061; 80076

== ENCOUNTER 2025-01-16 07:30 | Outpatient (REF) | payer MEDICARE, SELFPAY ==
--- OUTSIDE RECORDS SUMMARY | 2023-07-19 06:00 | XMS_ITS ---
Author Organization Abner cMgovern MD Address [address] [place] [phone] Care Team Providers Care Umbrella Tipper Name Role Phone Abner Mcgovern Primary Care Provider Allergies No Known Allergies REASON FOR VISIT 6 MO F/U, No Covid symptoms Medications Medication SIG (Take, Route, Frequency, Duration) Notes Start Date End Date Status clonazePAM 0.5 MG 1 tablet at bedtime Orally Once a day as needed for 20 days 01/14/2023 Active Propecia 1 MG 1 tablet Orally Once a day for 90 days 02/26/2011 Active Hyoscyamine Sulfate ER 0.375 MG 1 tablet Orally once a day for 30 days 11/03/2019 Not-Taking clonazePAM 0.5 MG TAKE 1 TABLET BY KHALIF AT BEDTIME NEEDED Orally Once a day 07/28/2022 Active Escitalopram Oxalate 10 MG TAKE 1 TABLET BY MOUTH EVERY DAY Active Valsartan-hydroCHLOROthia zide 80-12.5 MG TAKE 1 TABLET BY MOUTH EVERY DAY Active Avalide 150-12.5 MG 1 tablet Orally Once a day for 30 day(s) 11/05/2017 Not-Taking Cialis 20 MG 1 tablet Orally Once a day for 30 days 03/26/2011 Not-Taking Ocuflox 0.3 % 1 drop into affected eye Ophthalmic Four times a day for 10 days 11/17/2018 Not-Taki ng Clindamycin Phosphate 1 % 1 application to affected area Externally Once a day for 30 days 12/29/2018 Not-Taking Atorvastatin Calcium 40 MG 0.5 tablet Orally Once a day 01/12/2022 Active Sildenafil Citrate 100 MG 1/2 tablet as needed Orally Once a day for 30 day(s) 12/29/2018 Not-Taking Vital Signs Blood pressure systolic 122 mm Hg 07/19/19 24 Blood pressure diastolic 60 mm Hg 024 Height 68 in 07/19/2023 Weight 173 lbs 07/19/2023 BMI 26.30 kg/m2 07/19/2023 weight is up 2 pounds since 01-14-23 Encounters Encounter Location Date Provider Diagnosis Abner Mcgovern MD [address] [place], [place] [phone] 07/19/2023 Abner Mcgovern Pure hypercholestero lemia E78.00 and Essential hypertension I10 Assessments Encounter Date Diagnosis (ICD Code) Assessment Notes Treatment Notes Treatment Clinical Notes Section Notes 07/19/2023 Pure hypercholesterolemia (ICD-10 - E78.00) doing well, will continue current regiment 07/19/2023 Essential hypertensi on (ICD-10 - I10) well controlled, will continue current regiment Plan Of Treatment Medication Medication Name Sig Start Date Stop Date Notes Valsartan-hydroCHLOROthiazid e 80-12.5 MG TAKE 1 TABLET BY MOUTH EVERY DAY Atorvastatin Calcium 40 MG 0.5 tablet Or ally Once a day 01/12/2022 Treatment Notes Assessment Notes Pure hypercholesterolemia doing well, wi ll continue current regiment Essential hypertension well controlled, will continue current regiment Next Appt Details Provider Name:Abner seymour, 01/23/2025 01:00:00 PM, [address], [address], [place], [place], [phone], Progress Notes * Gloria PARKS: 8 (63 yo M)Acc No.[id number]:07/19/2023 Progress Notes Patient: Wily Leslie Provider: Ebonie Mcgovern MD :1960 A ge:63 Y S ex:Male Date:07/19/2023 Address:[address] [place] [address] Rd, [place], [id number] Subjective: * Chief Complaints: * 6 MO F/Andrea Covid symptoms * HPI: S ymptom(s): patient is a 63 yo male here for 6 month follow up visit, had tennis elbow for months but is getting better. * ROS: G eneral/Constitutional: Denies C hills. D enies F atigue. D enies F ever. D enies H eadache. E NT: Patient denies d ecreased sense of smell, any loss of taste, sore throat. D enies S ore throat. R espiratory: Denies C ough. D enies S hortness of breath at rest. D enies S hortness of breath with exertion. G astrointestinal: Denies D iarrhea. D enies N ausea. M usculoskeletal: Patient denies m uscle aches. P eripheral Vascular: Patient denies r ed and blue toes. * Medical History: * Surgical History: * Hospitalization/Major Diagno stic Procedure: * Medications: T akingPropecia 1 MG Tablet 1 tablet Orally Once a dayclonazePAM 0.5 MG Tablet 1 tablet at bedtime Orally Once a day as neededEscitalopram Oxalate 10 MG Tablet TAKE 1 TABLET BY MOUTH EVERY DAY clonazePAM 0.5 MG Tablet TAKE 1 TABLET BY MOUTH AT BEDTIME NEEDED Orally Once a dayAtorvastatin Calcium 40 MG Tablet 0.5 tablet Orally Once a dayValsartan-hydroCHLOROthiazide 80-12.5 MG Tablet TAKE 1 TABLET BY MOUTH EVERY DAY Taking Propecia 1 MG Tablet 1 tablet Orally Once a dayTaking clonazePAM 0.5 MG Tablet 1 tablet at bedtime Orally Once a day as neededTaking Escitalopram Oxalate 10 MG Tablet TAKE 1 TABLET BY MOUTH EVERY DAY Taking clonazePAM 0.5 MG Tablet TAKE 1 TABLET BY MOUTH AT BEDTIME NEEDED Orally Once a dayTaking Atorvastatin Calcium 40 MG Tablet 0.5 tablet Orally Once a dayTaking Valsartan-hydroCHLOROthiazide 80-12.5 MG Tablet TAKE 1 TABLET BY MOUTH EVERY DAY Not-Taking/PRNHyoscyamine Sulfate ER 0.375 MG Tablet Extended Release 12 Hour 1 tablet Orally once a daySildenafil Citrate 100 MG Tablet 1/2 tablet as needed Orally Once a dayClindamycin Phosphate 1 % Gel 1 application to affected area Externally Once a dayOcuflox 0.3 % Solution 1 drop into affected eye Ophthalmic Four times a dayAvalide 150-12.5 MG Tablet 1 tablet Orally Once a dayCialis 20 MG Tablet 1 tablet Orally Once a dayMedication List reviewed and reconciled with the patientNot-Taking/PRN Hyoscyamine Sulfate ER 0.375 MG Tablet Extended Release 12 Hour 1 tablet Orally once a dayNot-Taking/PRN Sildenafil Citrate 100 MG Tablet 1/2 tablet as needed Orally Once a dayNot-Taking/PRN Clindamycin Phosphate 1 % Gel 1 application to affected area Externally Once a dayNot- Taking/PRN Ocuflox 0.3 % Solution 1 drop into affected eye Ophthalmic Four times a dayNot-Taking/PRN Avalide 150-12.5 MG Tablet 1 tablet Orally Once a dayNot- Taking/PRN Cialis 20 MG Tablet 1 tablet Orally Once a dayMedication List reviewed and reconciled with the patient * Allergies: N .K.D.A.yes[Allergies Verified] Objective: * Vitals: H t: 68, Wt:173, BMI:26.30, BP:122/60 weight is up 2 pounds since 01-14-23. * P ast Orders: L ab:Liver Panel (Order Date - 07/12/2023) (Collection Date - 07/12/2023) Value Reference Range Bilirubin Total 0.5 0.0-1.0 - mg/dL Bilirubin Direct 0.2 0.0-0.5 - mg/dL Aspartate Amino Transferase 21 5-37 - U/L Alanine Aminotransferase 36 0-40 - U/L Total Protein 7.2 6.5-8.0 - g/dL Albumin Level 4.4 3.5-5.0 - g/dL Alkaline Phosphatase 83 39-117 - U/L L ab:Lipid Panel with Reflex (Order Date - 07/12/2023) (Collection Date - 07/12/2023) Value Reference Range Triglycerides 151 H <150 - mg/dL Cholesterol 146 <200 - mg/dL LDL Cholesterol Calculated 75 <100 - mg/dL HDL Cholesterol 41 >40 - mg/dL * Examination: G eneral Examination: GENERAL APPEARANCE: alert, well hydrated, in no distress . HEAD: normocephalic. SKIN: good turgor. HEART: regular rate and rhythm, no murmurs, rubs, gallops. LUNGS: no wheezes, rales, rhonchi, good air movement, clear to auscultation bilaterally. Assessment: * Assessment: 1. P ure hypercholesterolemia - E78.00 (Primary) 2 . E ssential hypertension - I10 Plan: * Treatment: 2. E ssential hypertension Continue Valsartan-hydroCHLOROthiazide Tablet, 80-12.5 MG, TAKE 1 TABLET BY MOUTH EVERY DAY. ? Notes: well controlled, will continue current regiment. * Procedure Codes: * * Sign off status: Completed true * Provider: Ebonie Mcgovern MD Date: 0 07/19/2023 Generated for Joseph davis/Kaleb/Hubertitting on: 1 12:31 PM EDT History and Physical Notes * HPI (History of Present Illness) Category Sub-Category Detail Notes Category Not es Symptom(s) patient is a 63 yo male here for 6 month follow up visit, had tennis elbow for months but is getting better Examination Category Sub-Category Detail Notes Category Not es General Examination GENERAL APPEARANCE: alert, w ell hydrated, in no distress HEAD: normocephalic HEART: regular rate and rhy thm, no murmurs, rubs, gallops LUNGS: no wheezes, rales, r honchi, good air movement, clear to auscultation bilaterally SKIN: good turgor
--- OUTSIDE RECORDS SUMMARY | 2023-10-11 09:36 | XMS_ITS ---
Author Organization Abner Mcgovern MD Address [address] [place] [phone] Care Team Providers Care Surgical Assistant Name Role Phone Abner Mcgovern Primary Care Provider REASON FOR VISIT REFILL Medications Medication SIG (Take, Route, Frequency, Duration) Notes Start Date End Date Status Propecia 1 MG 1 tablet Orally Once a day for 90 days 02/26/2011 Active Encounters Encounter Location Date Provider Diagnosis Abner Mcgovern MD [address] [place] [phone] 10/11/2023 Anber Mcgovern Plan Of Treatment Medication Medication Name Sig Start Date Stop Date Notes Propecia 1 MG 1 tablet Orally Once a day for 90 days 02/26 Next Appt Details Provider Name:Abner seymour, 01/23/2025 01:00:00 PM, [address], Suite [facility], [place], [place], [phone], Progress Notes * Gloria PARKS: 8 (63 yo M)Acc No.[id number]:10/11/2023 Patient: Wily Leslie :1960 A ge:63 Y S ex:Male Address:[address] [place] [address], [place] [address] * Refills Refill Propecia Tablet, 1 MG, Orally, 90, 1 tablet, Once a day, 90 days, Refills=3 * true * Date: Generated for Joseph davis/Kaleb/Hubertitting on: 12:31 PM EDT
--- OUTSIDE RECORDS SUMMARY | 2024-01-13 03:45 | XMS_ITS ---
Author Organization Abner Mcgovern MD Address [address] [place] [phone] Care Team Providers Care Assistant Women'S Tennis Coach Name Role Phone Abner Mcgovern Primary Care Provider Results Component Value Reference Range Notes Complete Blood Count Auto Di ff Reviewed date:01/13/2024 12:47:23 PM Interpretation: Performing Lab:[facility], [address] [place] [phone] Notes/Report: White Blood Count 6.4 4.8-10.8 X10*3/uL Red Blood Count 4.57 4.60-5.80 X10*6/uL Hemoglobin 13.2 14.0-18.0 g/dl Hematocrit 40.2 42.0-52.0 % Mean Corpuscular Volume 88.0 80.0-98.0 fL Mean Corpuscular Hemoglobin 28.9 27.0-33.0 pg Mean Corpuscular HGB Conc 32.8 31.0-36.0 g/dl Red Cell Distribution Width 12.5 11.0-16.0 % Platelet Count 217 160-400 X10*3/uL Mean Platelet Volume 10.6 9.4-12.4 fL Neutrophils Percent Auto 67.3 45-73 % Imm Gran Pct Auto 0.9 0.0-0.4 % Lymphocytes Percent Auto 18.6 20-40 % Monocytes Percent Auto 9.6 2-11 % Eosinophils Percent Auto 3.0 0-4 % Basophils Percent Auto 0.6 0-2 % NRBC Pct Auto 0.0 0.0-0.2 /100WBC Neutrophils Absolute Auto 4.3 2.0-8.3 x10*3/u L Imm Gran Abs Auto 0.06 0.00-0.03 X10*3/uL Lymphocytes Absolute Auto 1.2 1.2-4.9 X10*3/u L Monocytes Absolute Auto 0.6 0.1-1.2 X10*3/uL Eosinophils Absolute Auto 0.2 0.0-0.4 X10*3/u L Basophils Absolute Auto 0.0 0.0-0.2 X10*3/uL NRBC Abs Auto 0.000 0.0-0.012 X10*3/uL Comprehensive [place]. Panel Fa st Reviewed date:01/13/2024 12:27:45 PM Interpretation: Performing Lab:[facility], [address] [place] [phone] Notes/Report: Sodium 140 135-145 mmol/L Potassium 3.8 3.3-5.1 mmol/L Chloride 104 96-108 mmol/L Carbon Dioxide 29 22-29 mmol/L Anion Gap 11 12-20 Blood Urea Nitrogen 20 9-16 mg/dL Creatinine 0.97 0.5-1.4 mg/dL Estimated Glomerular Filt Rate > 60 NOTE: For -Stateless individuals, multiply the result by 1.210. Chronic Kidney Disease: Estimated GFR < 60 mL/min/1.73m2 Severe Kidney Disease: Estimated GFR < 15 mL/min/1.73m2 Glucose Fasting 102 60-99 mg/dL A fasting glucose from 100-125 mg/dl is considered impaired (pre-diabetes). Calcium 8.9 8.4-10.2 mg/dL Bilirubin Total 0.4 0.0-1.0 mg/dL Aspartate Amino Transferase 31 5-37 U/L Alanine Aminotransferase 46 0-40 U/L Total Protein 6.8 6.5-8.0 g/dL Albumin Level 4.2 3.5-5.0 g/dL Alkaline Phosphatase 80 39-117 U/L Lipid Panel Reviewed date:01/13/2024 12:28:52 PM Interpretation: Performing Lab:[facility], [address] [place] [phone] Notes/Report: Triglycerides 133 <150 mg/dL Desirable Triglyceride: less than 150 mg/dL Borderline High Triglyceride 150-199 mg/dL High Triglyceride: 200-499 mg/dL Very High Triglyceride: greater than or equal to 5OO mg/dL Cholesterol 146 <200 mg/dL Desirable Cholesterol: less than 200 mg/dL Borderline High Cholesterol: 200-239 mg/dL High Cholesterol: greater than 239 mg/dL LDL Cholesterol Calculated 76 <100 mg/dL Desirable LDL: less than 100 mg/dL Near Optimal/Above Optimal LDL: 110-129 mg/dL Borderline High LDL: 130-159 mg/dL High LDL: 160-189 mg/dL Very High LDL: greater than or equal to 190 mg/dL HDL Cholesterol 44 >40 mg/dL Desirable HDL: greater than 40 mg/dL Note: This HDL assay may give artificially low results in patients with liver disease. PSA,Total (Free>4and<10) Reviewed date:01/13/2024 12:46:23 PM Interpretation: Performing Lab:[facility], [address] [place] [phone] Notes/Report: PSA,Total (Free>4and<10) 0.38 0.00-4.00 ng/mL A Free PSA was not performed: The percentage of Free PSA can be used to enhance the differentiation of prostate cancer from benign prostatic disease in subjects whose PSA levels are between 4.0 and 10.0 ng/mL. For subjects whose PSA levels are below 4.0 or above 10.0 ng/mL, the risk of prostate cancer is determined on the basis of the PSA alone. Therefore the % Free PSA is recommended only for those subjects whose PSA levels are between 4.0 and 10.0 ng/mL. PSA methodology: [place] Alinity i Chemiluminescent Microparticle Immunoassay (CMIA) UA ClnCatch+Micro w/rflx Cul t Reviewed date:01/13/2024 05:30:34 PM Interpretation: Performing Lab:[facility], [address] [place] [phone] Notes/Report: [id number] Urine, Clean Catch Color Urine Yellow Appearance Urine Clear PH 7.0 5.0-9.0 Glucose Urine UA Negative Negative mg/dL Urine Blood Negative Negative Specific [place] - Urine 1.025 1.005-1.025 Urine Protein Trace Neg-Trace mg/dL Urine Ketones Trace Negative mg/dL Nitrite Urine Negative Negative Leukocyte Esterase Urine Negative Negative RBC Urine 0-2 0-2 /HPF WBC Urine 0-5 0-5 /HPF Squamous Epithelial Cell Urine 0-2 0-2 /HPF Bacteria Urine None Seen None Seen Hyaline Casts Urine 0-2 0-2 /LPF REASON FOR VISIT FASTING LABS Encounters Encounter Location Date Provider Diagnosis Abner Mcgovern MD [address] [place] [address] [place] [phone] 01/13/2024 Abner Mcgovern Blood tests for rout ine general physical examination Z00.00 ; Pure hypercholesterolemia E78.00 and Essential hypertension I10 Assessments Encounter Date Diagnosis (ICD Code) Assessment Notes Treatment Notes Treatment Clinical Notes Section Notes 01/13/2024 Blood tests for rout ine general physical examination (ICD-10 - Z00.00) 01/13/2024 Pure hypercholesterolemia (ICD-10 - E78.00) 01/13/2024 Essential hypertensi on (ICD-10 - I10) Plan Of Treatment Next Appt Details Provider Name:Abner Benoit ier, 01/23/2025 01:00:00 PM, [address] [place] [address], Suite [facility], [place], [place], [phone], Progress Notes * Wily PARKSDOB: 8 (63 yo M)Acc No.[id number]:01/13/2024 Progress Note Patient: Wily Leslie Provider: Ebonie Mcgovern MD :1960 A ge:63 Y S ex:Male Date:01/13/2024 Address:[address] [place] [address], [facility] Subjective: * Chief Complaints: * F ASTING LABS * Medical History: * Surgical History: * Hospitalization/Major Diagno stic Procedure: * Medications: Objective: Assessment: * Assessment: 1. B lood tests for routine general physical examination - Z00.00 (Primary) 2 . P ure hypercholesterolemia - E78.00 3 . E ssential hypertension - I10 Plan: * Treatment: 2. P ure hypercholesterolemia L AB: Complete Blood Count Auto Diff L AB: Comprehensive [place]. Panel Fast L AB: Lipid Panel L AB: PSA,Total (Free>4and<10) L AB: UA ClnCatch+Micro w/rflx Cult 3. E ssential hypertension L AB: Complete Blood Count Auto Diff L AB: Comprehensive [place]. Panel Fast L AB: Lipid Panel L AB: PSA,Total (Free>4and<10) L AB: UA ClnCatch+Micro w/rflx Cult * Procedure Codes: 3 6415 VENIPUNCT, ROUTINE* * * Sign off status: Completed true * Provider: Ebonie Mcgovern MD Date: Generated for Joseph davis/Kaleb/eTransmtraci on: 12:32 PM EDT
--- OUTSIDE RECORDS SUMMARY | 2024-01-20 09:00 | XMS_ITS ---
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 Name Role Phone Abner Mcgovern Primary Care Provider Allergies No Known Allergies Results Component Value Reference Range Notes Occult Blood, Stool, Guaiac Reviewed date:01/20/2024 02:11:40 PM Interpretation:Negative Performing Lab: Notes/Report: Negative Occult Blood, Stool, Guaiac Neg REASON FOR VISIT COMP EXAM Medications Medication SIG (Take, Route, Frequency, Duration) Notes Start Date End Date Status Clindamycin Phosphate 1 % 1 application to affected area Externally Once a day for 30 days 12/29/2018 Not-Taking Ocuflox 0.3 % 1 drop into affected eye Ophthalmic Four times a day for 10 days 11/17/2018 Not-Taki ng Avalide 150-12.5 MG 1 tablet Orally Once a day for 30 day(s) 11/05/2017 Not-Taking Cialis 20 MG 1 tablet Orally Once a day for 30 days 03/26/2011 Not-Taking clonazePAM 0.5 MG 1 tablet at bedtime Orally Once a day as needed for 20 days 01/20/2024 Active Hyoscyamine Sulfate ER 0.375 MG 1 tablet Orally once a day for 30 days 11/03/2019 Not-Taking Sildenafil Citrate 100 MG 1/2 tablet as needed Orally Once a day for 30 day(s) 12/29/2018 Not-Taking Atorvastatin Calcium 40 MG 0.5 tablet Orally Once a day 01/12/2022 Active Valsartan-hydroCHLOROthia zide 80-12.5 MG TAKE 1 TABLET BY MOUTH EVERY DAY Active Propecia 1 MG 1 tablet Orally Once a day for 90 days 02/26/2011 Active Escitalopram Oxalate 10 MG TAKE 1 TABLET BY MOUTH EVERY DAY for 90 Active Social History Tobacco Use: Social History Observation Description Date Details (start date - stop date) Never Smoker NA - NA Tobacco Use/Smoking Question Answer Notes Patient is a nonsmoker Additional Findings: Tobacco Non-User Cu rrent non-smoker, currently using no form of tobacco Alcohol Screen Question Answer Notes Did you have a drink contain ing alcohol in the past year? Yes How often did you have a dri nk containing alcohol in the past year? 2 to 4 times a month (2 points) How many drinks did you have on a typical day when you were drinking in the past year? 1 or 2 drinks (0 point) Points 2 Interpretation Negative Vital Signs Blood pressure systolic 122 mm Hg 01/20/20 24 Blood pressure diastolic 70 mm Hg 024 Height 68 in 01/20/2024 Weight 169 lbs 01/20/2024 BMI 25.69 kg/m2 01/20/2024 weight is down 4 pounds [facility] 07-19-23 Encounters Encounter Location Date Provider Diagnosis Abner Mcgovern MD [address] [place] [address] Drive [address] [place] [phone] 01/20/2024 Abner Mcgovern Anxiety F41.9 ; Suma al physical exam Z00.00 ; Pure hypercholesterolemia E78.00 ; Essential hypertension I10 ; Colon cancer screening Z12.11 and Depression screening Z13.31 Assessments Encounter Date Diagnosis (ICD Code) Assessment Notes Treatment Notes Treatment Clinical Notes Section Notes 01/20/2024 Anxiety (ICD-10 - F41.9) doing well with occasionally need to take clonopin, will continue to monitor 01/20/2024 Annual physical exam (ICD-10 - Z00.00) labs reviewed and discussed with patient 01/20/2024 Pure hypercholesterolemia (ICD-10 - E78.00) doing well on meds.will continue current regiment 01/20/2024 Essential hypertensi on (ICD-10 - I10) stable, at goal, will continue current regiment 01/20/2024 Colon cancer screeni ng (ICD-10 - Z12.11) guaiac negative 01/20/2024 Depression screening (ICD-10 - Z13.31) negative screen Plan Of Treatment Medication Medication Name Sig Start Date Stop Date Notes clonazePAM 0.5 MG 1 tablet at bedtime Orally Once a day as needed for 20 days 01/20/2024 Atorvastatin Calcium 40 MG 0.5 tablet Or ally Once a day 01/12/2022 Valsartan-hydroCHLOROthiazid e 80-12.5 MG TAKE 1 TABLET BY MOUTH EVERY DAY Treatment Notes Assessment Notes Anxiety doing well with occa sionally need to take clonopin, will continue to monitor Annual physical exam labs reviewed and d iscussed with patient Pure hypercholesterolemia doing well on meds.will continue current regiment Essential hypertension stable, at goal, will continue current regiment Colon cancer screening guaiac negative Depression screening negative screen Next Appt Details Follow Up: 6 Months, Reason: Provider Name:Abner Benoit ier, 01/23/2025 01:00:00 PM, [address] [place] [address], [place] [address], [place], [place], [phone], Progress Notes * Wily PARKSDOB: [birth year] (64 yo M)Acc No.[id number]:01/20/2024 Patient: Wily Leslie Provider: Ebonie Mcgovern MD :1960 A ge:63 Y S ex:Male Date:01/20/2024 Address:[address] [place] [address], [id number] Subjective: * Chief Complaints: * C OMP EXAM * HPI: D epression Screening: PHQ-9 L ittle interest or pleasure in doing things N ot at all, F eeling down, depressed, or hopeless N ot at all, T rouble falling or staying asleep, or sleeping too much N ot at all, F eeling tired or having little energy N ot at all, P oor appetite or overeating N ot at all, F eeling bad about yourself or that you are a failure, or have let yourself or your family down N ot at all, T rouble concentrating on things, such as reading the newspaper or watching television N ot at all, M oving or speaking so slowly that other people could have noticed; or the opposite, being so fidgety or restless that you have been moving around a lot more than usual N ot at all, T houghts that you would be better off or of hurting yourself in some way N ot at all, T otal Score 0 . I nterpretation and Intervention D epression Screening Findings N egative, F ollow-Up for Depression : review of PHQ-9 found negative result, no follow-up needed. C ommunication Needs: Communication Needs D oes the patient have a hearing impairment N o, D oes the patient have a vision impairment? Y es, I f yes, what is the vision impairment? C ontact Lenses, D oes the patient have a cognition impairment? N o. F all Risk: History H ave you had any falls with injury in the past year? N o, H ave you had two or more falls in the past year? N o. S ROSHNA Questions: SDOH Questions I n the past year have you been worried about losing housing? N o, I n the past year have you or any family members you live with been unable to get any of the following when it was really needed? Check all that apply: N one. S ymptom(s): patient is a 63 yo male here for annual visit with review of recent labs and follow up of chronic issues,. * ROS: G eneral/Constitutional: Patient denies f atigue , headache. C hange in appetite?denies. C hills d enies. F ever d enies. O phthalmologic: Blurred vision d enies. D ischarge d enies. P ain d enies. E NT: Patient denies d ecreased sense of smell , any loss of taste , sore throat. D ecreased hearing d enies. S ore throat d enies. S wollen glands d enies. E ndocrine: Cold intolerance d enies. E xcessive thirst d enies. H eat intolerance d enies. W eight loss d enies. R espiratory: Cough d enies. S hortness of breath at rest d enies. S hortness of breath with exertion d enies. W heezing d enies. C ardiovascular: Chest pain at rest d enies. C hest pain with exertion?denies. I rregular heartbeat d enies. S hortness of breath d enies. ? G astrointestinal: Abdominal pain d enies. C hange in bowel habits d enies. D iarrhea d enies. N ausea d enies. R ectal bleeding d enies. V omiting d enies . G enitourinary: Blood in urine d enies. D ifficulty urinating d enies. F requent urination d enies. M usculoskeletal: Patient denies m uscle aches. P ainful joints d enies. W eakness d enies. P eripheral Vascular: Patient denies r ed and blue toes. S kin: Dry skin d enies. I tching d enies. D enies?Mole(s), changes in moles, new moles or any lesions of concern. D enies P hotosensitivity. R marline d enies. N eurologic: Dizziness d enies. F ainting d enies. H eadache?denies. * Medical History: * Surgical History: * Hospitalization/Major Diagno stic Procedure: * Family History: F ather: 58 yrs, colon cancer, pancreatic cancer, diagnosed with Cancer. M other: 85 yrs, Old age., family history unknown . 1 brother(s) , 2 sister(s) - healthy. 1 son(s) - healthy. . father, colon & pancreatic CA, No pertinent family medical history, Denies mental health/substance abuse family history, Denies mental health/substance abuse family history, Denies mental health/substance abuse family history, No pertinent family medical history. * Social History: T obacco Use: T obacco Use/Smoking P atient is a n onsmoker, A dditional Findings: Tobacco Non-User C urrent non-smoker, currently using no form of tobacco. D rugs/Alcohol: A lcohol Screen D id you have a drink containing alcohol in the past year? Y es, H ow often did you have a drink containing alcohol in the past year? 2 to 4 times a month (2 points), H ow many drinks did you have on a typical day when you were drinking in the past year? 1 or 2 drinks (0 point), P oints 2 , I nterpretation N egative. M iscellaneous: C affeine: yes, frequency:, 1-2 cups per day. Children: yes. no Community involvements. Exercise: yes, weights rowing machine and tennis in the summer [employer] ball. Home smoke detector use: yes. Housing: owning. Living with: family. Marital status: . Occupation: works full-time. Pets: cats: dogs:1 cat. no Travel outside of the [place]. * Medications: T akingclonazePAM 0.5 MG Tablet 1 tablet at bedtime Orally Once a day as neededAtorvastatin Calcium 40 MG Tablet 0.5 tablet Orally Once a dayValsartan-hydroCHLOROthiazide 80-12.5 MG Tablet TAKE 1 TABLET BY MOUTH EVERY DAY Escitalopram Oxalate 10 MG Tablet TAKE 1 TABLET BY MOUTH EVERY DAY Propecia 1 MG Tablet 1 tablet Orally Once a dayTaking clonazePAM 0.5 MG Tablet 1 tablet at bedtime Orally Once a day as neededTaking Atorvastatin Calcium 40 MG Tablet 0.5 tablet Orally Once a dayTaking Valsartan-hydroCHLOROthiazide 80-12.5 MG Tablet TAKE 1 TABLET BY MOUTH EVERY DAY Taking Escitalopram Oxalate 10 MG Tablet TAKE 1 TABLET BY MOUTH EVERY DAY Taking Propecia 1 MG Tablet 1 tablet Orally Once a dayNot- Taking/PRNHyoscyamine Sulfate ER 0.375 MG Tablet Extended Release [...] application to affected area Externally Once a dayNot-Taking/PRN Ocuflox 0.3 % Solution 1 drop into affected eye Ophthalmic Four times a dayNot-Taking/PRN Avalide 150-12.5 MG Tablet 1 tablet Orally Once a dayNot-Taking/PRN Cialis 20 MG Tablet 1 tablet Orally Once a dayMedication List reviewed and reconciled with the patient * Allergies: N .K.D.A.yes[Allergies Verified] Objective: * Vitals: H t: 68, Wt:169, BMI:25.69, BP:122/70 weight is down 4 pounds since 07-19-23. * P ast Orders: L ab:Lipid Panel (Order Date - 01/13/2024) (Collection Date - 01/13/2024) Value Reference Range Triglycerides 133 <150 - mg/dL Cholesterol 146 <200 - mg/dL LDL Cholesterol Calculated 76 <100 - mg/dL HDL Cholesterol 44 >40 - mg/dL L ab:PSA,Total (Free>4and<10) (Order Date - 01/13/2024) (Collection Date - 01/13/2024) Value Reference Range PSA,Total (Free>4and<10) 0.38 0.00-4.00 - ng/ mL L ab:UA ClnCatch+Micro w/rflx Cult (Order Date - 01/13/2024) (Collection Date - 01/13/2024) Value Reference Range Color Urine Yellow - Appearance Urine Clear - PH 7.0 5.0-9.0 - Glucose Urine UA Negative Negative - mg/dL Urine Blood Negative Negative - Specific [place] - Urine 1.025 1.005-1.025 - Urine Protein Trace Neg-Trace - mg/dL Urine Ketones Trace Negative - mg/dL Nitrite Urine Negative Negative - Leukocyte Esterase Urine Negative Negative - RBC Urine 0-2 0-2 - /HPF WBC Urine 0-5 0-5 - /HPF Squamous Epithelial Cell Urine 0-2 0-2 - /HP F Bacteria Urine None Seen None Seen - Hyaline Casts Urine 0-2 0-2 - /LPF L ab:Complete Blood Count Auto Diff (Order Date - 01/13/2024) (Collection Date - 01/13/2024) Value Reference Range White Blood Count 6.4 4.8-10.8 - X10*3/uL Red Blood Count 4.57 L 4.60-5.80 - X10*6/uL Hemoglobin 13.2 L 14.0-18.0 - g/dl Hematocrit 40.2 L 42.0-52.0 - % Mean Corpuscular Volume 88.0 80.0-98.0 - fL Mean Corpuscular Hemoglobin 28.9 27.0-33.0 - pg Mean Corpuscular HGB Conc 32.8 31.0-36.0 - g/ dl Red Cell Distribution Width 12.5 11.0-16.0 - % Platelet Count 217 160-400 - X10*3/uL Mean Platelet Volume 10.6 9.4-12.4 - fL Neutrophils Percent Auto 67.3 45-73 - % Imm Gran Pct Auto 0.9 H 0.0-0.4 - % Lymphocytes Percent Auto 18.6 L 20-40 - % Monocytes Percent Auto 9.6 2-11 - % Eosinophils Percent Auto 3.0 0-4 - % Basophils Percent Auto 0.6 0-2 - % NRBC Pct Auto 0.0 0.0-0.2 - /100WBC Neutrophils Absolute Auto 4.3 2.0-8.3 - x10* 3/uL Imm Gran Abs Auto 0.06 H 0.00-0.03 - X10*3/uL Lymphocytes Absolute Auto 1.2 1.2-4.9 - X10* 3/uL Monocytes Absolute Auto 0.6 0.1-1.2 - X10*3/ uL Eosinophils Absolute Auto 0.2 0.0-0.4 - X10* 3/uL Basophils Absolute Auto 0.0 0.0-0.2 - X10*3/ uL NRBC Abs Auto 0.000 0.0-0.012 - X10*3/uL L ab:Comprehensive [place]. Panel Fast (Order Date - 01/13/2024) (Collection Date - 01/13/2024) Value Reference Range Sodium 140 135-145 - mmol/L Bilirubin Total 0.4 0.0-1.0 - mg/dL Aspartate Amino Transferase 31 5-37 - U/L Alanine Aminotransferase 46 H 0-40 - U/L Total Protein 6.8 6.5-8.0 - g/dL Albumin Level 4.2 3.5-5.0 - g/dL Alkaline Phosphatase 80 39-117 - U/L Potassium 3.8 3.3-5.1 - mmol/L Chloride 104 96-108 - mmol/L Carbon Dioxide 29 22-29 - mmol/L Anion Gap 11 L 12-20 - Blood Urea Nitrogen 20 H 9-16 - mg/dL Creatinine 0.97 0.5-1.4 - mg/dL Estimated Glomerular Filt Rate > 60 - Glucose Fasting 102 H 60-99 - mg/dL Calcium 8.9 8.4-10.2 - mg/dL * Examination: G eneral Examination: GENERAL APPEARANCE: w ell developed, well nourished, in no acute distress. HEAD: n ormocephalic, atraumatic. EYES: p upils equal, round, reactive to light and accommodation, sclera non-icteric. EARS: n ormal. ORAL CAVITY: m ucosa moist. THROAT: c lear. NECK/THYROID: n scarlet supple, full range of motion, no cervical lymphadenopathy, no bruits. SKIN: w arm and dry, no suspicious lesions. HEART: r egular rate and rhythm, S1, S2 normal, no murmurs.? LUNGS: c lear to auscultation bilaterally. ABDOMEN: s oft, nontender, nondistended, bowel sounds present, normal, no organomegaly , no masses palpable. RECTAL EXAM: n ormal tone, no external hemorrhoids, no masses palpable, prostate normal, stool guaiac negative. MALE GENITOURINARY: u ncircumcised , no penile lesions or discharge , no testicular mass , prostate normal , testes descended bilaterally. EXTREMITIES: n o clubbing, cyanosis, or edema. NEUROLOGIC: n onfocal, motor strength normal upper and lower extremities, sensory exam intact. Assessment: * Assessment: 1. A nnual physical exam - Z00.00 (Primary) 2 . A nxiety - F41.9 3 . P ure hypercholesterolemia - E78.00 4 . E ssential hypertension - I10 5 . C olon cancer screening - Z12.11 6 . D epression screening - Z13.31 Plan: * Treatment: 2. A nxiety Refill clonazePAM Tablet, 0.5 MG, 1 tablet at bedtime, Orally, Once a day as needed, 20 days, 20, Refills 1. L AB: Liver Panel (Ordered for 04/21/2024) L AB: Lipid Panel (Ordered for 04/21/2024) Notes: doing well with occasionally need to take clonopin, will continue to monitor 3. P ure hypercholesterolemia Continue Atorvastatin Calcium Tablet, 40 MG, 0.5 tablet, Orally, Once a day. Notes: doing well on meds.will continue current regiment 4. E ssential hypertension Continue Valsartan-hydroCHLOROthiazide Tablet, 80-12.5 MG, TAKE 1 TABLET BY MOUTH EVERY DAY. ? Notes: stable, at goal, will continue current regiment 5. C olon cancer screening L AB: Occult Blood, Stool, Guaiac N egative Value Reference Range O ccult Blood, Stool, Guaiac Neg Notes: guaiac negative??6.?Depression screening? Notes: negative screen?? * Procedure Codes: 8 2270 TEST FOR BLOOD, FECES * Follow Up: 6 Months * * Sign off status: Completed true * Provider: Ebonie Mcgovern MD Date: Generated for Joseph davis/Kaleb/Hubertitting on: 12:32 PM EDT History and Physical Notes * HPI (History of Present Illness) Category Sub-Category Detail Notes Category Not es Symptom(s) patient is a 63 yo male here for annual visit with review of recent labs and follow up of chronic issues, Depression Screening PHQ-9 Little inte rest or pleasure in doing things: Not at all Feeling down, depressed, or hopeless: No t at all Trouble falling or staying asleep, or sl eeping too much: Not at all Feeling tired or having little energy: N ot at all Poor appetite or overeating: Not at all Feeling bad about yourself o r that you are a failure, or have let yourself or your family down: Not at all Trouble concentrating on thi ngs, such as reading the newspaper or watching television: Not at all Moving or speaking so slowly that other people could have noticed; or the opposite, being so fidgety or restless that you have been moving around a lot more than usual: Not at all Thoughts that you would be b maura off or of hurting yourself in some way: Not at all Total Score: 0 Interpretation and Intervention Depression Junior sullivan Findings: Negative Follow-Up for Depression: : review of PH Q-9 found negative result, no follow-up needed SDOH Questions SDOH Questions In the past year have you been worried about losing housing?: No In the past year have you or any family members you live with been unable to get any of the following when it was really needed? Check all that apply:: None Fall Risk History Have you had any falls with injury i n the past year?: No Have you had two or more falls in the year?: No Communication Needs Communication Needs Does the patient have a hearing impairment: No Does the patient have a vision impairmen t?: Yes If yes, what is the vision impairment?: Contact Lenses Does the patient have a cognition impair ment?: No Examination Category Sub-Category Detail Notes Category Not es General Examination GENERAL APPEARANCE: well dev eloped, well nourished, in no acute distress HEAD: normocephalic, atrau matic EYES: pupils equal, round, reactive to light and accommodation, sclera non-icteric EARS: normal THROAT: clear NECK/THYROID: neck supple, full ra nge of motion, no cervical lymphadenopathy, no bruits HEART: regular rate and rhy thm, S1, S2 normal, no murmurs LUNGS: clear to auscultatio n bilaterally ABDOMEN: soft, nontender, non distended, bowel sounds present, normal, no organomegaly , no masses palpable NEUROLOGIC: nonfocal, motor stre ngth normal upper and lower extremities, sensory exam intact SKIN: warm and dry, no imelda picious lesions EXTREMITIES: no clubbing, cyanosi s, or edema MALE GENITOURINARY: uncircumcised , no p enile lesions or discharge , no testicular mass , prostate normal , testes descended bilaterally RECTAL EXAM: normal tone, no exte rnal hemorrhoids, no masses palpable, prostate normal, stool guaiac negative ORAL CAVITY: mucosa moist
--- OUTSIDE RECORDS SUMMARY | 2024-07-11 04:00 | XMS_ITS ---
Author Organization Abner Mcgovern MD Address [address] [place], [place] [id number] Care Team Providers Care Deli Department Manager Name Role Phone Shaniqua Abner Primary Care Provider [phone] Results Component Value Reference Range Notes Liver Panel Reviewed date:07/11/2024 06:29:48 PM Interpretation: Performing Lab:[facility], [address] [place] [phone] Notes/Report: Bilirubin Total 0.4 0.0-1.0 mg/dL Bilirubin Direct 0.2 0.0-0.5 mg/dL Aspartate Amino Transferase 33 5-37 U/L Alanine Aminotransferase 49 0-40 U/L Total Protein 7.0 6.5-8.0 g/dL Albumin Level 4.4 3.5-5.0 g/dL Alkaline Phosphatase 79 39-117 U/L Lipid Panel Reviewed date:07/11/2024 06:29:57 PM Interpretation: Performing Lab:[facility], [address] [place] [phone] Notes/Report: Triglycerides 116 <150 mg/dL Desirable Triglyceride: less than 150 mg/dL Borderline High Triglyceride 150-199 mg/dL High Triglyceride: 200-499 mg/dL Very High Triglyceride: greater than or equal to 5OO mg/dL Cholesterol 136 <200 mg/dL Desirable Cholesterol: less than 200 mg/dL Borderline High Cholesterol: 200-239 mg/dL High Cholesterol: greater than 239 mg/dL LDL Cholesterol Calculated 73 <100 mg/dL Desirable LDL: less than 100 mg/dL Near Optimal/Above Optimal LDL: 110-129 mg/dL Borderline High LDL: 130-159 mg/dL High LDL: 160-189 mg/dL Very High LDL: greater than or equal to 190 mg/dL HDL Cholesterol 40 >40 mg/dL Desirable HDL: greater than 40 mg/dL Note: This HDL assay may give artificially low results in patients with liver disease. REASON FOR VISIT FASTING LIPIDS Encounters Encounter Location Date Provider Diagnosis Abner Mcgovern MD [address] [place] [address] [place] [phone] 07/11/2024 Abner Mcgovern Pure hypercholestero lemia E78.00 and Anxiety F41.9 Assessments Encounter Date Diagnosis (ICD Code) Assessment Notes Treatment Notes Treatment Clinical Notes Section Notes 07/11/2024 Pure hypercholesterolemia (ICD-10 - E78.00) 07/11/2024 Anxiety (ICD-10 - F41.9) Plan Of Treatment Next Appt Details Provider Name:Abner Benoit ier, 01/23/2025 01:00:00 PM, [address] [place] [address], [address] [facility], [place], [place], [phone], Progress Notes * PARKSWilyDOB: [birth year] (64 yo M)Acc No.[id number]:07/11/2024 Progress Note Patient: Wily DUEÑAS Provider: Ebonie Mcgovern MD :1960 A ge:64 Y S ex:Male Date:07/11/2024 Address:[address] [place] [address], [id number] Subjective: * Chief Complaints: * 1 . FASTING LIPIDS. * Medical History: Objective: * Vitals: Assessment: * Assessment: 1. P ure hypercholesterolemia - E78.00 (Primary) 2 . A nxiety - F41.9 ? Plan: * Treatment: 2. A nxiety L AB: Liver Panel (Collection Date & Time - 07/11/2024 08:00 AM) L AB: Lipid Panel (Collection Date & Time - 07/11/2024 08:00 AM) * Procedure Codes: 3 6415 VENIPUNCT, ROUTINE* * * The named appointment provid er may or may not be the originator of this progress note, and it is not deemed complete until electronically signed by the appointment provider. Sign off status: Pending * Provider: Ebonie Mcgovern MD Date: 0 07/11/2024 Generated for Joseph davis/Kaleb/Hubertitting on: 1 12:31 PM EDT
--- OUTSIDE RECORDS SUMMARY | 2024-07-17 09:30 | XMS_ITS ---
Author Organization Abner Mcgovern MD Address [address] [place] [phone] Care Team Providers Care Gastroenterology Nurse Name Role Phone Abenr Mcgovern Primary Care Provider [phone] Allergies No Known Allergies REASON FOR VISIT 6 MO F/U Medications Medication SIG (Take, Route, Frequency, Duration) Notes Start Date End Date Status Sildenafil Citrate 100 MG 1/2 tablet as [...] a day for 30 days 03/26/2011 Not-Taking Hyoscyamine Sulfate ER 0.375 MG 1 tablet Orally once a day for 30 days 11/03/2019 Not-Taking Atorvastatin Calcium 40 MG TAKE 1/2 TABLET BY MOUTH EVERY DAY FOR 90 DAYS Active Valsartan-hydroCHLOROthia zide 80-12.5 MG TAKE 1 TABLET BY MOUTH EVERY DAY Active Propecia 1 MG 1 tablet Orally Once a day for 90 days 02/26/2011 Active clonazePAM 0.5 MG 1 tablet at bedtime Orally Once a day as needed for 20 days 01/20/2024 Active Escitalopram Oxalate 10 MG TAKE 1 TABLET BY MOUTH EVERY DAY for 90 Active Vital Signs Blood pressure systolic 130 mm Hg 07/18/19 25 Blood pressure diastolic 70 mm Hg 025 Height 68 in 07/17/2024 Weight 169 lbs 07/17/2024 BMI 25.69 kg/m2 07/17/2024 Encounters Encounter Location Date Provider Diagnosis Abner Mcgovern MD [address] [place] [address] [place] [id number] 07/17/2024 Abner Mcgovern Pure hypercholestero lemia E78.00 and Essential hypertension I10 Assessments Encounter Date Diagnosis (ICD Code) Assessment Notes Treatment Notes Treatment Clinical Notes Section Notes 07/17/2024 Pure hypercholesterolemia (ICD-10 - E78.00) well controlled, will continue current regiment 07/17/2024 Essential hypertensi on (ICD-10 - I10) well controlled, will continue current regiment Plan Of Treatment Medication Medication Name Sig Start Date Stop Date Notes Atorvastatin Calcium 40 MG TAKE 1/2 TABL ET BY MOUTH EVERY DAY FOR 90 DAYS Valsartan-hydroCHLOROthiazid e 80-12.5 MG TAKE 1 TABLET BY MOUTH EVERY DAY Treatment Notes Assessment Notes Pure hypercholesterolemia well controlle d, will continue current regiment Essential hypertension well controlled, will continue current regiment Next Appt Details Provider Name:Abner Benoit ier, 01/23/2025 01:00:00 PM, [address] [place] [address], Suite [facility], [place], [place], [phone], Progress Notes * Gloria PARKS: 8 (64 yo M)Acc No.[id number]:07/17/2024 Progress Notes Patient: Wily DUEÑAS Provider: Ebonie Mcgovern MD :1960 A ge:64 Y S ex:Male Date:07/17/2024 Address:[address] [place] [address], [place], [id number] Subjective: * Chief Complaints: * 6 MO F/U * HPI: S ymptom(s): patient is a 64 yo male here for 6 month follow up visit. * ROS: G eneral/Constitutional: Denies C hills. D enies F atigue. D enies F ever. D enies H eadache. E NT: Denies S ore throat. R espiratory: Denies C ough. D enies S hortness of breath at rest. D enies S hortness of breath with exertion. G astrointestinal: Denies D iarrhea. D enies N ausea. * Medical History: * Surgical History: * Hospitalization/Major Diagno stic Procedure: * Medications: T akingEscitalopram Oxalate 10 MG Tablet TAKE 1 TABLET BY MOUTH EVERY DAY Propecia 1 MG Tablet 1 tablet Orally Once a day clonazePAM 0.5 MG Tablet 1 tablet at bedtime Orally Once a day as needed Atorvastatin Calcium 40 MG Tablet TAKE 1/2 TABLET BY MOUTH EVERY DAY FOR 90 DAYS Valsartan-hydroCHLOROthiazide 80-12.5 MG Tablet TAKE 1 TABLET BY MOUTH EVERY DAY Taking Escitalopram Oxalate 10 MG Tablet TAKE 1 TABLET BY MOUTH EVERY DAY Taking Propecia 1 MG Tablet 1 tablet Orally Once a day Taking clonazePAM 0.5 MG Tablet 1 tablet at bedtime Orally Once a day as needed Taking Atorvastatin Calcium 40 MG Tablet TAKE 1/2 TABLET BY MOUTH EVERY DAY FOR 90 DAYS Taking Valsartan-hydroCHLOROthiazide 80-12.5 MG Tablet TAKE 1 TABLET BY MOUTH EVERY DAY Not-Taking/PRNHyoscyamine Sulfate ER 0.375 MG Tablet Extended Release 12 Hour 1 tablet Orally once a day Sildenafil Citrate 100 MG Tablet 1/2 tablet as needed Orally Once a day Clindamycin Phosphate 1 % Gel 1 application to affected area Externally Once a day Ocuflox 0.3 % Solution 1 drop into affected eye Ophthalmic Four times a day Avalide 150-12.5 MG Tablet 1 tablet Orally Once a day Cialis 20 MG Tablet 1 tablet Orally Once a day Medication List reviewed and reconciled with the patientNot-Taking/PRN Hyoscyamine Sulfate ER 0.375 MG Tablet Extended Release 12 Hour 1 tablet Orally once a day Not-Taking/PRN Sildenafil Citrate 100 MG Tablet 1/2 tablet as needed Orally Once a day Not-Taking/PRN Clindamycin Phosphate 1 % Gel 1 application to affected area Externally Once a day Not-Taking/PRN Ocuflox 0.3 % Solution 1 drop into affected eye Ophthalmic Four times a day Not-Taking/PRN Avalide 150-12.5 MG Tablet 1 tablet Orally Once a day Not-Taking/PRN Cialis 20 MG Tablet 1 tablet Orally Once a day Medication List reviewed and reconciled with the patient * Allergies: N .K.D.A.yes[Allergies Verified] Objective: * Vitals: H t: 68, Wt: 169, BMI:25.69, BP:130/70, Wt-k.66. * P ast Orders: L ab:Liver Panel (Order Date - 07/11/2024) (Collection Date & Time - 07/11/2024 08:00 AM) Value Reference Range Bilirubin Total 0.4 0.0-1.0 - mg/dL Bilirubin Direct 0.2 0.0-0.5 - mg/dL Aspartate Amino Transferase 33 5-37 - U/L Alanine Aminotransferase 49 H 0-40 - U/L Total Protein 7.0 6.5-8.0 - g/dL Albumin Level 4.4 3.5-5.0 - g/dL Alkaline Phosphatase 79 39-117 - U/L L ab:Lipid Panel (Order Date - 07/11/2024) (Collection Date & Time - 07/11/2024 08:00 AM) Value Reference Range Triglycerides 116 <150 - mg/dL Cholesterol 136 <200 - mg/dL LDL Cholesterol Calculated 73 <100 - mg/dL HDL Cholesterol 40 L >40 - mg/dL * Examination: G eneral Examination: GENERAL APPEARANCE: a lert, well hydrated, in no distress.? HEAD: n ormocephalic. SKIN: g ood turgor. HEART: n o murmurs, rubs, gallops, regular rate and rhythm.? LUNGS: n o wheezes, rales, rhonchi, good air movement, clear to auscultation bilaterally. Assessment: * Assessment: 1. P ure hypercholesterolemia - E78.00 (Primary) 2 . E ssential hypertension - I10 Plan: * Treatment: 2. E ssential hypertension Continue Valsartan-hydroCHLOROthiazide Tablet, 80-12.5 MG, TAKE 1 TABLET BY MOUTH EVERY DAY. ? Notes: well controlled, will continue current regiment * Procedure Codes: * * Sign off status: Completed true * Provider: Ebonie Mcgovern MD Date: 0 07/17/2024 Generated for Joseph davis/Kaleb/Hubertitting on: 1 12:33 PM EDT History and Physical Notes * HPI (History of Present Illness) Category Sub-Category Detail Notes Category Not es Symptom(s) patient is a 64 yo male here for 6 month follow up visit Examination Category Sub-Category Detail Notes Category Not es General Examination GENERAL APPEARANCE: alert, w ell hydrated, in no distress HEAD: normocephalic HEART: no murmurs, rubs, ga llops, regular rate and rhythm LUNGS: no wheezes, rales, r honchi, good air movement, clear to auscultation bilaterally SKIN: good turgor
--- OUTSIDE RECORDS SUMMARY | 2024-10-05 09:35 | XMS_ITS ---
Author Organization Abner Mcgovern MD Address [address] [place] [phone] Care Team Providers Care Pin Worker Name Role Phone Abner Mcgovern Primary Care Provider [phone] REASON FOR VISIT REFILL Medications Medication SIG (Take, Route, Frequency, Duration) Notes Start Date End Date Status Propecia 1 MG 1 tablet Orally Once a day for 90 days 02/26/2011 Active Encounters Encounter Location Date Provider Diagnosis Abner Mcgovern MD [address] [place] [id number] 10/05/2024 Abner Mcgovern Plan Of Treatment Medication Medication Name Sig Start Date Stop Date Notes Propecia 1 MG 1 tablet Orally Once a day for 90 days 02/26 Next Appt Details Provider Name:Abner seymour, 01/23/2025 01:00:00 PM, [address], [address], [place], [place], [phone], Progress Notes * Gloria PARKS: 8 (64 yo M)Acc No.[id number]:10/05/2024 Patient: Wily DUEÑAS :1960 A ge:64 Y S ex:Male Address:[address] [place] [address], [place] [address] * Refills Refill Propecia Tablet, 1 MG, Orally, 90, 1 tablet, Once a day, 90 days, Refills=3 * true * Date: Generated for Joseph davis/Kaleb/Hubertitting on: 12:32 PM EDT
--- OUTSIDE RECORDS SUMMARY | 2025-01-16 03:30 | XMS_ITS ---
Author Organization Abner Mcgovern MD Address [address] [place] [phone] Care Team Providers Care Tubular Stock Glass Bulb Machine Former Name Role Phone Abner Mcgovern Primary Care Provider [phone] Results Component Value Reference Range Notes Complete Blood Count Auto Di ff (Not yet reviewed by provider) Interpretation: Performing Lab:[facility], [address] [place] [phone] Notes/Report: White Blood Count 7.2 4.8-10.8 X10*3/uL Red Blood Count 5.03 4.60-5.80 X10*6/uL Hemoglobin 14.6 14.0-18.0 g/dl Hematocrit 44.4 42.0-52.0 % Mean Corpuscular Volume 88.3 80.0-98.0 fL Mean Corpuscular Hemoglobin 29.0 27.0-33.0 pg Mean Corpuscular HGB Conc 32.9 31.0-36.0 g/dl Red Cell Distribution Width 12.3 11.0-16.0 % Platelet Count 217 160-400 X10*3/uL Mean Platelet Volume 10.2 9.4-12.4 fL Neutrophils Percent Auto 64.5 45-73 % Imm Gran Pct Auto 0.8 0.0-0.4 % Lymphocytes Percent Auto 20.5 20-40 % Monocytes Percent Auto 11.7 2-11 % Eosinophils Percent Auto 2.1 0-4 % Basophils Percent Auto 0.4 0-2 % NRBC Pct Auto 0.0 0.0-0.2 /100WBC Neutrophils Absolute Auto 4.7 2.0-8.3 x10*3/u L Imm Gran Abs Auto 0.06 0.00-0.03 X10*3/uL Lymphocytes Absolute Auto 1.5 1.2-4.9 X10*3/u L Monocytes Absolute Auto 0.8 0.1-1.2 X10*3/uL Eosinophils Absolute Auto 0.2 0.0-0.4 X10*3/u L Basophils Absolute Auto 0.0 0.0-0.2 X10*3/uL NRBC Abs Auto 0.000 0.0-0.012 X10*3/uL Comprehensive Opp. Panel Fa st (Not yet reviewed by provider) Interpretation: Performing Lab:[facility], [address] [place] [phone] Notes/Report: Sodium 143 135-145 mmol/L Potassium 4.1 3.3-5.1 mmol/L Chloride 106 96-108 mmol/L Carbon Dioxide 27 22-29 mmol/L Anion Gap 14 12-20 Blood Urea Nitrogen 19 9-16 mg/dL Creatinine 1.04 0.5-1.4 mg/dL Estimated Glomerular Filt Rate > 60 Chronic Kidney Disease: Estimated GFR < 60 mL/min/1.73m2 Severe Kidney Disease: Estimated GFR < 15 mL/min/1.73m2 Glucose Fasting 97 60-99 mg/dL Calcium 9.1 8.4-10.2 mg/dL Bilirubin Total 0.6 0.0-1.0 mg/dL Aspartate Amino Transferase 32 5-37 U/L Alanine Aminotransferase 41 0-40 U/L Total Protein 7.2 6.5-8.0 g/dL Albumin Level 4.7 3.5-5.0 g/dL Alkaline Phosphatase 90 39-117 U/L Lipid Panel (Not yet reviewe d by provider) Interpretation: Performing Lab:[facility], [address] [place] [phone] Notes/Report: Triglycerides 146 <150 mg/dL Desirable Triglyceride: less than 150 mg/dL Borderline High Triglyceride 150-199 mg/dL High Triglyceride: 200-499 mg/dL Very High Triglyceride: greater than or equal to 5OO mg/dL Cholesterol 140 <200 mg/dL Desirable Cholesterol: less than 200 mg/dL Borderline High Cholesterol: 200-239 mg/dL High Cholesterol: greater than 239 mg/dL LDL Cholesterol Calculated 70 <100 mg/dL Desirable LDL: less than 100 mg/dL Near Optimal/Above Optimal LDL: 110-129 mg/dL Borderline High LDL: 130-159 mg/dL High LDL: 160-189 mg/dL Very High LDL: greater than or equal to 190 mg/dL HDL Cholesterol 41 >40 mg/dL Desirable HDL: greater than 40 mg/dL Note: This HDL assay may give artificially low results in patients with liver disease. PSA,Total (Free>4and<10) (No t yet reviewed by provider) Interpretation: Performing Lab:[facility], [address] [place] [phone] Notes/Report: PSA,Total (Free>4and<10) 0.14 0.00-4.00 ng/mL A Free PSA was not [...] Immunoassay (CMIA) UA ClnCatch+Micro w/rflx Cul t (Not yet reviewed by provider) Interpretation: Performing Lab:[facility], [address] [place] [phone] Notes/Report: Urine, Clean Catch Color Urine Yellow Appearance Urine Clear PH 6.5 5.0-9.0 Glucose Urine UA Negative Negative mg/dL Urine Blood Negative Negative Specific [place] - Urine 1.020 1.005-1.025 Urine Protein Negative Neg-Trace mg/dL Urine Ketones Negative Negative mg/dL Nitrite Urine Negative Negative Leukocyte Esterase Urine Negative Negative RBC Urine 0-2 0-2 /HPF WBC Urine 0-5 0-5 /HPF Squamous Epithelial Cell Urine 0-2 0-2 /HPF Bacteria Urine None Seen None Seen Hyaline Casts Urine 0-2 0-2 /LPF REASON FOR VISIT FASTING LABS Encounters Encounter Location Date Provider Diagnosis Abner Mcgovern MD [address] [place] [id number] 01/16/2025 Abner Mcgovern Blood tests for rout ine general physical examination Z00.00 ; Pure hypercholesterolemia E78.00 and Essential hypertension I10 Assessments Encounter Date Diagnosis (ICD Code) Assessment Notes Treatment Notes Treatment Clinical Notes Section Notes 01/16/2025 Blood tests for rout ine general physical examination (ICD-10 - Z00.00) 01/16/2025 Pure hypercholesterolemia (ICD-10 - E78.00) 01/16/2025 Essential hypertensi on (ICD-10 - I10) Plan Of Treatment Pending Test Test Name Order Date Complete Blood Count Auto Diff 5 Comprehensive Opp. Panel Fast Lipid Panel 01/16/2025 PSA,Total (Free>4and<10) 01/16/2025 UA ClnCatch+Micro w/rflx Cult 01/16/2025 Next Appt Details Provider Name:Abner Benoit ier, 01/23/2025 01:00:00 PM, [address] [facility], Suite [facility], [place], [place], [phone], Progress Notes * Wily PARKSDOB: [birth year] (64 yo M)Acc No.[id number]:01/16/2025 Progress Note Patient: Wily DUEÑAS Provider: Ebonie Mcgovern MD :1960 A ge:64 Y S ex:Male Date:01/16/2025 Address:[address] [place] [address], [id number] Subjective: * Chief Complaints: * 1 . FASTING LABS. * Medical History: Objective: * Vitals: Assessment: * Assessment: 1. B lood tests for routine general physical examination - Z00.00 (Primary) 2 .?Pure hypercholesterolemia - E78.00 3 . E ssential hypertension - I10 ? Plan: * Treatment: 2. P ure hypercholesterolemia L AB: Complete Blood Count Auto Diff (Collection Date & Time - 01/16/2025 07:30 AM) L AB: Comprehensive Opp. Panel Fast (Collection Date & Time - 01/16/2025 07:30 AM) L AB: Lipid Panel (Collection Date & Time - 01/16/2025 07:30 AM) L AB: PSA,Total (Free>4and<10) (Collection Date & Time - 01/16/2025 07:30 AM) L AB: UA ClnCatch+Micro w/rflx Cult (Collection Date & Time - 01/16/2025 07:30 AM) 3. E ssential hypertension L AB: Complete Blood Count Auto Diff (Collection Date & Time - 01/16/2025 07:30 AM) L AB: Comprehensive Opp. Panel Fast (Collection Date & Time - 01/16/2025 07:30 AM) L AB: Lipid Panel (Collection Date & Time - 01/16/2025 07:30 AM) L AB: PSA,Total (Free>4and<10) (Collection Date & Time - 01/16/2025 07:30 AM) L AB: UA ClnCatch+Micro w/rflx Cult (Collection Date & Time - 01/16/2025 07:30 AM) * Procedure Codes: 3 6415 VENIPUNCT, ROUTINE* * * The named appointment provid er may or may not be the originator of this progress note, and it is not deemed complete until electronically signed by the appointment provider. Sign off status: Pending * Provider: Ebonie Mcgovern MD Date: Generated for Joseph davis/Kaleb/Hubertitting on: 12:31 PM EDT
[2025-01-16 10:18] LABS: MANUAL DIFF FLAG NO
[2025-01-16 10:38] LABS: Hematocrit 44.4 % (42.0-52.0); Hemoglobin 14.6 g/dl (14.0-18.0); Imm Gran Abs Auto 0.06 X10*3/uL (0.00-0.03); Imm Gran Pct Auto 0.8 % (0.0-0.4); Lymphocytes Absolute Auto 1.5 X10*3/uL (1.2-4.9); Mean Corpuscular HGB Conc 32.9 g/dl (31.0-36.0); Mean Corpuscular Hemoglobin 29.0 pg (27.0-33.0); Mean Corpuscular Volume 88.3 fL (80.0-98.0); NRBC Abs Auto 0.000 X10*3/uL (0.0-0.012); NRBC Pct Auto 0.0 /100WBC (0.0-0.2); Platelet Count 217 X10*3/uL (160-400); Red Blood Count 5.03 X10*6/uL (4.60-5.80); White Blood Count 7.2 X10*3/uL (4.8-10.8)
[2025-01-16 10:57] LABS: Alanine Aminotransferase 41 U/L (0-40); Albumin Level 4.7 g/dL (3.5-5.0); Alkaline Phosphatase 90 U/L (39-117); Anion Gap 14 (12-20); Aspartate Amino Transferase 32 U/L (5-37); Blood Urea Nitrogen 19 mg/dL (9-16); Calcium 9.1 mg/dL (8.4-10.2); Carbon Dioxide 27 mmol/L (22-29); Chloride 106 mmol/L (96-108); Cholesterol 140 mg/dL (<200); Estimated Glomerular Filt Rate > 60; HDL Cholesterol 41 mg/dL (>40); Potassium 4.1 mmol/L (3.3-5.1); Sodium 143 mmol/L (135-145); Total Protein 7.2 g/dL (6.5-8.0); Triglycerides 146 mg/dL (<150)
[2025-01-16 11:09] LABS: Appearance Urine Clear; Glucose Urine UA Negative (Negative); PH 6.5 (5.0-9.0); Specific Gravity - Urine 1.020 (1.005-1.025)
[2025-01-16 11:11] LABS: PSA,Total (Free>4and<10) 0.14 ng/mL (0.00-4.00)
--- OUTSIDE RECORDS SUMMARY | 2025-01-16 12:32 | XMS_ITS | Patient Health Record ---
Author Organization Abner Mcgovern MD Address [address] [place], [place] [id number] Care Team Providers Care Blindstitch Hemmer Name Role Phone Abner Mcgovern Primary Care Provider Allergies No Known Allergies Results Component Value Reference Range Notes Liver Panel Reviewed date:07/11/2024 06:29:48 PM Interpretation: Performing Lab:[facility], [address] [place] [phone] Notes/Report: Bilirubin Total 0.4 0.0-1.0 mg/dL Bilirubin Direct 0.2 0.0-0.5 mg/dL Aspartate Amino Transferase 33 5-37 U/L Alanine Aminotransferase 49 0-40 U/L Total Protein 7.0 6.5-8.0 g/dL Albumin Level 4.4 3.5-5.0 g/dL Alkaline Phosphatase 79 39-117 U/L Lipid Panel Reviewed date:07/11/2024 06:29:57 PM Interpretation: Performing Lab:[facility], [address] [place] [phone] Notes/Report: Triglycerides 116 <150 mg/dL Desirable Triglyceride: [...] disease. Complete Blood Count Auto Di ff (Not yet reviewed by provider) Interpretation: Performing Lab:[facility], [address] [place] [phone] Notes/Report: White Blood Count 7.2 4.8-10.8 X10*3/uL [...] NRBC Abs Auto 0.000 0.0-0.012 X10*3/uL Comprehensive Rochert. Panel Fa st (Not yet reviewed by provider) Interpretation: Performing Lab:[facility], [address] [place] [phone] Notes/Report: Sodium 143 135-145 mmol/L Potassium 4.1 [...] yet reviewe d by provider) Interpretation: Performing Lab:[facility], [address] [place] [phone] Notes/Report: Triglycerides 146 <150 mg/dL Desirable Triglyceride: [...] t yet reviewed by provider) Interpretation: Performing Lab:[address] [phone] Notes/Report: PSA,Total (Free>4and<10) 0.14 0.00-4.00 ng/mL A [...] (Not yet reviewed by provider) Interpretation: Performing Lab:[address] [phone] Notes/Report: Urine, Clean Catch Color Urine Yellow Appearance Urine Clear PH 6.5 5.0-9.0 Glucose Urine UA Negative Negative mg/dL Urine Blood Negative Negative Specific [place] - Urine 1.020 1.005-1.025 Urine Protein Negative [...] Blood, Stool, Guaiac Neg Hold Gold Reviewed date:07/11/2024 06:29:10 PM Interpretation: Performing Lab:[facility], [address] [place] [address], [place] [phone] Notes/Report: Hold Gold See Note Specimen held [...] day for 10 days 11/17/2018 Not-Taki ng Atorvastatin Calcium 40 MG TAKE 1/2 TABLET BY MOUTH EVERY DAY FOR 90 DAYS Active Propecia 1 MG 1 tablet Orally Once a day for 90 days 02/26/2011 Active Valsartan-hydroCHLOROthia zide 80-12.5 MG TAKE 1 TABLET BY MOUTH EVERY DAY Active Avalide 150-12.5 MG 1 tablet Orally Once a day for 30 day(s) 11/05/2017 Not-Taking Cialis 20 MG 1 tablet Orally Once a day for 30 days 03/26/2011 Not-Taking Escitalopram Oxalate 10 MG TAKE 1 TABLET BY MOUTH EVERY DAY for 90 Active clonazePAM 0.5 MG 1 tablet at bedtime Orally Once a day as needed for 20 days 01/20/2024 Active Immunizations Vaccine Route Administration Date Status [...] Problem Status W/U Status Risk Notes Problem 490380278 Tubular adenoma (D36.9) Active confir med Problem 54316952 Anxiety (F41.9) Active confirmed Problem 359844097 Diverticulitis (K57.92) Active confir med Problem Chronic pharyngitis (975403) Chronic pharyngitis (J31.2) Active confirmed Problem 49705515 Essential hypert ension (I10) Active confirmed Problem Erectile dysfunction (disorder) (744261451) Erectile dysfunction, unspecified erectile dysfunction type (N52.9) Active confirmed Problem 95708927 Proteinuria (R80.9) Active confirmed Problem 927587874 Pure hypercholesterolemia (E78.00) Active confirmed Problem 30012732 Irritable bowel syndrome with both constipation and diarrhea (K58.2) Active confirmed Problem 906107938 Arthritis of kne e (M17.10) Active confirmed Vital Signs Blood pressure diastolic 70 mm Hg 07/17/2024 Height 68 in 07/17/2024 Blood pressure systolic 130 mm Hg 07/17/2024 Weight 169 lbs 07/17/2024 BMI 25.69 kg/m2 07/17/2024 Encounters Encounter Location Date Provider Diagnosis Abner Mcgovern MD [address] [place] [id number] 07/11/2024 Abner Mcgovern Pure hypercholestero lemia E78.00 and Anxiety F41.9 Abner Mcgovern MD [address] [place] [id number] 01/16/2025 Abner Mcgovern Blood tests for rout ine general physical examination Z00.00 ; Pure hypercholesterolemia E78.00 and Essential hypertension I10 Abner Mcgovern MD [address] [place] [id number] 01/20/2024 Abner Mcgovern Anxiety F41.9 ; Suma al physical exam Z00.00 ; Pure hypercholesterolemia E78.00 ; Essential hypertension I10 ; Colon cancer screening Z12.11 and Depression screening Z13.31 Ab[address] [place] [id number] 07/17/2024 Abner Mcgovern Pure hypercholestero lemia E78.00 and Essential hypertension I10 Abner Mcgovern MD [address] [place] [id number] 10/05/2024 Abner Mcgovern Assessments Encounter Date Diagnosis (ICD Code) Assessment Notes Treatment Notes Treatment Clinical Notes Section Notes 07/11/2024 Pure hypercholesterolemia (ICD-10 - E78.00) 01/16/2025 Blood tests for laxmi ine general physical examination (ICD-10 - Z00.00) 01/20/2024 Anxiety (ICD-10 - F41.9) doing well with occasionally need to take clonopin, will continue to monitor 01/20/2024 Annual physical exam (ICD-10 - Z00.00) labs reviewed and discussed with patient 07/17/2024 Pure hypercholesterolemia (ICD-10 - E78.00) well controlled, will continue current regiment 07/11/2024 Anxiety (ICD-10 - F41.9) 01/16/2025 Pure hypercholesterolemia (ICD-10 - E78.00) 01/20/2024 Pure hypercholesterolemia (ICD-10 - E78.00) doing well on meds.will continue current regiment 07/17/2024 Essential hypertensi on (ICD-10 - I10) well controlled, will continue current regiment 01/16/2025 Essential hypertensi on (ICD-10 - I10) 01/20/2024 Essential hypertensi on (ICD-10 - I10) stable, at goal, will continue current regiment 01/20/2024 Colon cancer screeni ng (ICD-10 - Z12.11) guaiac negative 01/20/2024 Depression screening (ICD-10 - Z13.31) negative screen Plan Of Treatment Pending Test Test Name Order Date Complete Blood Count Auto Diff 5 Comprehensive Rochert. Panel Fast 5 Lipid Panel 01/16/2025 PSA,Total (Free>4and<10) 01/16/2025 UA ClnCatch+Micro w/rflx Cult 01/16/2025 Next Appt Details Provider Name:Abner Martinez Kaycee ier, 01/23/2025 01:00:00 PM, [address] [place] [address], [address], [place], [place], [phone], Insurance Providers Payer Name Payer Address Payer Phone Subscriber Number Group Number Insured Name Patient Relationship to Insured Coverage Start Date Coverage End Date [facility] [employer] [address] [address] [place] [phone] [id number] Wily Plunkett Self - patient is the insured MEDICARE [address] [place] [address] [id number] Wily Plunkett Self - patient is the insured Medical (General) History Medical History History ICD Code colonoscopy 2011 due in 5 ye ars due to family; colonoscopy by Dr. Joyner 06/30/16 (repeat 5 years): colonoscopy 10/06/21 repeat 5yrs
== END 2025-01-16 07:31 | disposition home or self-care (01) ==
LOC: HO.LNP 07:30
PROVIDERS: Visit Provider Internal Medicine
DX: Z00.00 Encounter for general adult medical examination without abnormal findings (principal); Z12.5 Encounter for screening for malignant neoplasm of prostate; I10 Essential (primary) hypertension; E78.00 Pure hypercholesterolemia, unspecified
CPT/HCPCS: 80053; 80061; 81001; 84153; 85025